=== PATIENT | female | born 1955 | race Caucasian/White ===

== ENCOUNTER 2018-09-05 18:40 | Emergency (ER) | payer MEDICAID ==
[~2018-09-05] VITALS: Ht 154.9 cm; Wt 109.1 kg
[2018-09-05 19:57] LABS: CLARITY,URINE CLEAR (Clear); COLOR,URINE YELLOW (Yellow); GLUCOSE, URINE NEGATIVE (Neg); KETONES,URINE NEGATIVE (Neg); LEUKOCYTE ESTERASE ,URINE SMALL (Neg); NITRITES, URINE NEGATIVE (Neg); OCCULT BLOOD,URINE NEGATIVE (Neg); PH,URINE 5.5 (4.8-8.0); PROTEIN,URINE NEGATIVE (Neg); UROBILINOGEN,URINE 0.2 E.U/dL (0.2-1.0)
[2018-09-05 19:58] LABS: UA COLLECTION TYPE CLN CATCH MIDSTREAM
[2018-09-05 20:06] LABS: BACTERIA,URINE NONE SEEN /HPF (Neg); MUCUS STRANDS NONE SEEN /LPF (Neg); RBC,URINE NONE SEEN /HPF (0-2); RENAL CELLS, URINE FEW /HPF; SQUAMOUS EPITHELIAL CELL,UR FEW /LPF (FEW)
[2018-09-05 20:07] LABS: BASOPHILS # (AUTO) 0.1 X10'3 (0-0.2); BASOPHILS % (AUTO) 1.2 % (0-1); EOSINOPHILS # (AUTO) 0.2 X10'3 (0-0.9); EOSINOPHILS % (AUTO) 3.1 % (0-6); HEMATOCRIT 38.3 % (35.0-45.0); HEMOGLOBIN 12.7 g/dl (12.0-16.0); LYMPHOCYTES # (AUTO) 2.1 X10'3 (1.1-4.8); LYMPHOCYTES % (AUTO) 36.3 % (21-51); MEAN CORPUSCULAR HEMOGLOBIN 31.5 PG (27.0-31.0); MEAN CORPUSCULAR HGB CONC 33.2 g/dL (33.0-36.5); MEAN CORPUSCULAR VOLUME 94.7 FL (78-98); MEAN PLATELET VOLUME 10.4 FL (7.4-10.4); MONOCYTES # (AUTO) 0.5 X10'3 (0-0.9); MONOCYTES % (AUTO) 9.1 % (2-12); NEUTROPHILS % (AUTO) 50.3 % (42-75); PLATELET COUNT 207 X10'3 (140-440); RED BLOOD COUNT 4.04 X10'6 (4.20-5.60); RED CELL DISTRIBUTION WIDTH 12.6 % (11.5-14.5); WHITE BLOOD COUNT 5.9 X10'3 (4.5-11.0)
[2018-09-05 20:20] LABS: ALANINE AMINOTRANSFERASE 32 U/L (12-78); ALBUMIN 3.6 G/DL (3.4-5.0); ALBUMIN/GLOBULIN RATIO 1.2 (1.1-1.5); ALKALINE PHOSPHATASE 109 IU/L (46-116); ANION GAP 5 (8-16); ASPARTATE AMINO TRANSFERASE 20 U/L (10-37); BILIRUBIN,TOTAL 0.2 MG/DL (0.1-1.0); BLOOD UREA NITROGEN 16 MG/DL (7-18); CALCIUM 9.3 MG/DL (8.5-10.1); CHLORIDE 109 MMOL/L (99-107); CREATININE 1.07 MG/DL (0.40-0.90); GLUCOSE 112 MG/DL (70-104); POTASSIUM 3.7 MMOL/L (3.5-5.1); SODIUM 143 MMOL/L (135-145); TOTAL CARBON DIOXIDE 29.4 MMOL/L (24-32); TOTAL PROTEIN 6.6 G/DL (6.4-8.2); eGFR 52 ML/MIN
[2018-09-05] MEDS ORDERED: CEPH-571 PO (21:54)
[2018-09-05] MEDS ORDERED: BACDS PO (22:11)
[2018-09-05 22:14] VITALS: BP 142/89
== END 2018-09-05 22:20 | disposition home or self-care (01) ==
LOC: ER 18:41
DX: N39.0 Urinary tract infection, site not specified (principal); M54.9 Dorsalgia, unspecified; Z87.442 Personal history of urinary calculi; Z91.018 Allergy to other foods; Z88.1 Allergy status to other antibiotic agents; Z88.8 Allergy status to other drugs, medicaments and biological substances; Z88.5 Allergy status to narcotic agent; Z79.899 Other long term (current) drug therapy
CPT/HCPCS: 36415; 74176; 80053; 81001; 85025; 87088; 99284

== ENCOUNTER 2019-04-30 10:08 | Emergency (ER) | payer MEDICARE, MEDICAID ==
[~2019-04-30] VITALS: Ht 154.9 cm; Wt 105.0 kg
[~2019-04-30 10:08] MED LIST: ADV50100 IH; ARIP5TAB14 PO; ASCO500C15 PO; ASPI-611 PO; ATOR40TA PO; BUDE10.2 INH; CARB100T7 PO; CARV3.122 PO; CHOL200077 PO; CLON-528 PO; FISH1CAP15 PO; ISOS30TA9 PO; LEVO500T2 PO; LISI2.5T2 PO; LYSI500T40 PO; MAGN400C PO; MELA1TAB17 PO; MIRT30TA8 PO; NITR0.4T51 SL; UBID100C16 PO; VILA10TA PO; VITA1CAP PO; [UNRECOGNIZED DRUG - CODE] PO
[2019-04-30 11:14] LABS: BASOPHILS % (AUTO) 0.9 % (0-1); EOSINOPHILS # (AUTO) 0.2 X10'3 (0-0.9); EOSINOPHILS % (AUTO) 4.6 % (0-6); HEMATOCRIT 33.1 % (35.0-45.0); HEMOGLOBIN 11.3 g/dl (12.0-16.0); LYMPHOCYTES # (AUTO) 1.1 X10'3 (1.1-4.8); LYMPHOCYTES % (AUTO) 25.5 % (21-51); MEAN CORPUSCULAR HEMOGLOBIN 32.7 PG (27.0-31.0); MEAN CORPUSCULAR HGB CONC 34.2 g/dL (33.0-36.5); MEAN CORPUSCULAR VOLUME 95.4 FL (78-98); MEAN PLATELET VOLUME 10.5 FL (7.4-10.4); MONOCYTES # (AUTO) 0.4 X10'3 (0-0.9); MONOCYTES % (AUTO) 9.8 % (2-12); NEUTROPHILS # (AUTO) 2.6 X10'3 (1.8-7.7); NEUTROPHILS % (AUTO) 59.2 % (42-75); PLATELET COUNT 166 X10'3 (140-440); RED BLOOD COUNT 3.47 X10'6 (4.20-5.60); RED CELL DISTRIBUTION WIDTH 12.2 % (11.5-14.5); WHITE BLOOD COUNT 4.4 X10'3 (4.5-11.0)
[2019-04-30 11:29] LABS: ALANINE AMINOTRANSFERASE 43 U/L (12-78); ALBUMIN 3.3 G/DL (3.4-5.0); ALKALINE PHOSPHATASE 123 IU/L (46-116); ANION GAP 11 (8-16); ASPARTATE AMINO TRANSFERASE 30 U/L (10-37); BILIRUBIN,TOTAL 0.4 MG/DL (0.1-1.0); BLOOD UREA NITROGEN 12 MG/DL (7-18); BUN/CREATININE RATIO 10.9 (6.6-38.0); CALCIUM 8.7 MG/DL (8.5-10.1); CHLORIDE 108 MMOL/L (99-107); GLUCOSE 103 MG/DL (70-104); POTASSIUM 3.7 MMOL/L (3.5-5.1); SODIUM 144 MMOL/L (135-145); TOTAL CARBON DIOXIDE 25.2 MMOL/L (24-32); TOTAL PROTEIN 6.7 G/DL (6.4-8.2); eGFR 50 ML/MIN
--- NOTE | 2019-04-30 11:38 | NUR ---
TROPONIN 3.50 REPORTED TO BRYAN AND DUSTIN WYNN.
[2019-04-30] MEDS ORDERED: nitroGLYCERIN 0.4mg SUBLingual tab SL PRN (11:55)
[2019-04-30] MEDS ORDERED: morphine 4 MG/ML inj SYRINge IV ONE (12:00)
[2019-04-30] MEDS ORDERED: ondansetron/PF 4mg/2ml inj IV ONE (12:00)
[2019-04-30] MEDS ORDERED: ATOR40TA72 PO (12:58)
[2019-04-30] MEDS ORDERED: ARIP2TAB20 PO (13:04)
[2019-04-30] MEDS ORDERED: CARB200T8 PO (13:07)
[2019-04-30 15:15] VITALS: BP 113/65
[2019-04-30] MEDS ORDERED: CIME200T95 PO (15:53)
--- NOTE | 2019-05-02 10:06 | NUR ---
Case Management DC follow up: Spoke to caregiver, pt doing fine, no c/o pain, cp, SOB at time of telephone conv. Compliant w/medications, follow up appointments.
== END 2019-04-30 16:10 | disposition home or self-care (01) ==
LOC: ER 10:08
DX: R07.89 Other chest pain (principal); I25.10 Atherosclerotic heart disease of native coronary artery without angina pectoris; J45.909 Unspecified asthma, uncomplicated; I12.9 Hypertensive chronic kidney disease with stage 1 through stage 4 chronic kidney disease, or unspecified chronic kidney disease; N18.9 Chronic kidney disease, unspecified; E78.5 Hyperlipidemia, unspecified; Z95.1 Presence of aortocoronary bypass graft; Z86.73 Personal history of transient ischemic attack (TIA), and cerebral infarction without residual deficits; Z79.899 Other long term (current) drug therapy; Z79.82 Long term (current) use of aspirin; Z91.018 Allergy to other foods; Z88.1 Allergy status to other antibiotic agents
CPT/HCPCS: 36415; 71045; 80053; 84484; 85025; 93005; 96374; 96375; 99284; J2270; J2405

== ENCOUNTER 2019-11-12 13:26 | Emergency (ER) | payer MEDICARE, MEDICAID ==
[~2019-11-12] VITALS: Ht 154.9 cm; Wt 108.6 kg
[~2019-11-12 13:26] MED LIST changes: -ADV50100 IH; +ARIP2TAB20 PO; -ARIP5TAB14 PO; -ATOR40TA PO; +ATOR40TA72 PO; -CARB100T7 PO; +CARB200T8 PO; +CIME200T95 PO; -LEVO500T2 PO; -LYSI500T40 PO; -[UNRECOGNIZED DRUG - CODE] PO
[2019-11-12 13:47] LABS: BASOPHILS % (AUTO) 0.9 % (0-1); EOSINOPHILS # (AUTO) 0.2 X10'3 (0-0.9); EOSINOPHILS % (AUTO) 4.1 % (0-6); HEMATOCRIT 41.6 % (35.0-45.0); HEMOGLOBIN 13.7 g/dl (12.0-16.0); LYMPHOCYTES # (AUTO) 1.8 X10'3 (1.1-4.8); MEAN CORPUSCULAR HEMOGLOBIN 31.6 PG (27.0-31.0); MEAN CORPUSCULAR VOLUME 95.7 FL (78-98); MEAN PLATELET VOLUME 10.8 FL (7.4-10.4); MONOCYTES # (AUTO) 0.3 X10'3 (0-0.9); MONOCYTES % (AUTO) 5.5 % (2-12); NEUTROPHILS % (AUTO) 56.5 % (42-75); PLATELET COUNT 213 X10'3 (140-440); RED BLOOD COUNT 4.34 X10'6 (4.20-5.60); RED CELL DISTRIBUTION WIDTH 11.9 % (11.5-14.5); WHITE BLOOD COUNT 5.3 X10'3 (4.5-11.0)
[2019-11-12 14:00] LABS: PARTIAL THROMBOPLASTIN TIME 25 SECONDS (22-32)
[2019-11-12 14:04] LABS: ALANINE AMINOTRANSFERASE 28 U/L (12-78); ALBUMIN 3.9 G/DL (3.4-5.0); ALBUMIN/GLOBULIN RATIO 1.1 (1.1-1.5); ALKALINE PHOSPHATASE 119 IU/L (46-116); ANION GAP 9 (8-16); ASPARTATE AMINO TRANSFERASE 17 U/L (10-37); BILIRUBIN,TOTAL 0.4 MG/DL (0.1-1.0); BLOOD UREA NITROGEN 40 MG/DL (7-18); BUN/CREATININE RATIO 28.8 (6.6-38.0); CALCIUM 9.3 MG/DL (8.5-10.1); CHLORIDE 104 MMOL/L (99-107); CREATININE 1.39 MG/DL (0.40-0.90); GLUCOSE 105 MG/DL (70-104); POTASSIUM 4.3 MMOL/L (3.5-5.1); SODIUM 139 MMOL/L (135-145); TOTAL CARBON DIOXIDE 25.8 MMOL/L (24-32); TOTAL PROTEIN 7.5 G/DL (6.4-8.2); eGFR 38 ML/MIN
[2019-11-12 14:06] LABS: TROPONIN I < 0.04 NG/ML (0.0-0.05)
--- NOTE | 2019-11-12 14:10 | NUR ---
castro stroke rn at bedside with tele neuro present. pt reports no stroke symptoms. pt at baseline. hx of neuro damage with associated confusion, speech abnormalities, and facial droop.
[2019-11-12 14:11] LABS: LARGE PLATELETS FEW; PLATELET ESTIMATE NORMAL
[2019-11-12] MEDS ORDERED: normal saline 1000ML IV soln IVB ONE (14:45)
--- NOTE | 2019-11-12 16:00 | NUR ---
MD AWARE THAT PT WOULD LIKE TO LEAVE AND REFUSES NS AND IV START. PT INFORMED THAT MD WOULD LIKE HER TO STAY FOR THE 3 HOUR TROP TO RESULT, AND THEN DC HOME.
[2019-11-12 18:25] VITALS: BP 122/64
== END 2019-11-12 18:27 | disposition home or self-care (01) ==
LOC: ER 13:27
DX: M79.602 Pain in left arm (principal); R41.0 Disorientation, unspecified; R51 Headache; R07.89 Other chest pain; I25.10 Atherosclerotic heart disease of native coronary artery without angina pectoris; I10 Essential (primary) hypertension; J44.9 Chronic obstructive pulmonary disease, unspecified; Z86.69 Personal history of other diseases of the nervous system and sense organs; Z86.73 Personal history of transient ischemic attack (TIA), and cerebral infarction without residual deficits; Z95.1 Presence of aortocoronary bypass graft; Z88.8 Allergy status to other drugs, medicaments and biological substances; Z79.82 Long term (current) use of aspirin; Z79.899 Other long term (current) drug therapy
CPT/HCPCS: 36415; 70450; 71045; 80053; 82948; 84484; 85025; 85610; 85730; 93005; 99285

== ENCOUNTER 2019-11-26 13:29 | Emergency (ER) | payer MEDICARE, MEDICAID ==
[~2019-11-26] VITALS: Ht 154.9 cm; Wt 111.0 kg
[2019-11-26] MEDS ORDERED: furosemide 10 MG/1 ML 10ml inj IV ONE (13:45)
[2019-11-26] MEDS ORDERED: NITR0.4T48 PO (14:12)
[2019-11-26] MEDS ORDERED: VILA10TA PO (14:12)
[2019-11-26] MEDS ORDERED: CARV3.122 PO (14:12)
[2019-11-26] MEDS ORDERED: CLON-369 PO (14:12)
[2019-11-26] MEDS ORDERED: LISI2.5T89 PO (14:12)
[2019-11-26] MEDS ORDERED: CARB200T9 PO (14:12)
[2019-11-26] MEDS ORDERED: FAMO40TA7 PO (14:12)
[2019-11-26] MEDS ORDERED: ISOS30TA9 PO (14:12)
[2019-11-26] MEDS ORDERED: ATOR40TA71 PO (14:12)
[2019-11-26] MEDS ORDERED: MIRT-67 PO (14:12)
[2019-11-26] MEDS ORDERED: ARIP2TAB20 PO (14:12)
[2019-11-26] MEDS ORDERED: VITA1CAP PO (14:14)
[2019-11-26] MEDS ORDERED: MULT-1085 PO (14:14)
[2019-11-26 14:16] LABS: BASOPHILS % (AUTO) 0.8 % (0-1); EOSINOPHILS # (AUTO) 0.1 X10'3 (0-0.9); EOSINOPHILS % (AUTO) 3.1 % (0-6); HEMATOCRIT 37.6 % (35.0-45.0); HEMOGLOBIN 12.9 g/dl (12.0-16.0); LYMPHOCYTES # (AUTO) 1.4 X10'3 (1.1-4.8); LYMPHOCYTES % (AUTO) 30.5 % (21-51); MEAN CORPUSCULAR HEMOGLOBIN 32.7 PG (27.0-31.0); MEAN CORPUSCULAR HGB CONC 34.3 g/dL (33.0-36.5); MEAN CORPUSCULAR VOLUME 95.4 FL (78-98); MEAN PLATELET VOLUME 10.6 FL (7.4-10.4); MONOCYTES # (AUTO) 0.3 X10'3 (0-0.9); MONOCYTES % (AUTO) 6.9 % (2-12); NEUTROPHILS # (AUTO) 2.7 X10'3 (1.8-7.7); NEUTROPHILS % (AUTO) 58.7 % (42-75); PLATELET COUNT 188 X10'3 (140-440); RED BLOOD COUNT 3.94 X10'6 (4.20-5.60); WHITE BLOOD COUNT 4.6 X10'3 (4.5-11.0)
[2019-11-26] MEDS ORDERED: OMEG1CAP13 PO (14:17)
[2019-11-26] MEDS ORDERED: ASCO500C17 PO (14:17)
[2019-11-26] MEDS ORDERED: CHOL100046 PO (14:18)
[2019-11-26 14:36] LABS: ALANINE AMINOTRANSFERASE 37 U/L (12-78); ALBUMIN 3.3 G/DL (3.4-5.0); ALKALINE PHOSPHATASE 117 IU/L (46-116); ANION GAP 7 (8-16); ASPARTATE AMINO TRANSFERASE 23 U/L (10-37); BILIRUBIN,TOTAL 0.4 MG/DL (0.1-1.0); BLOOD UREA NITROGEN 28 MG/DL (7-18); BUN/CREATININE RATIO 25.9 (6.6-38.0); CALCIUM 7.8 MG/DL (8.5-10.1); CHLORIDE 99 MMOL/L (99-107); CREATININE 1.08 MG/DL (0.40-0.90); GLUCOSE 144 MG/DL (70-104); SODIUM 133 MMOL/L (135-145); TOTAL PROTEIN 6.5 G/DL (6.4-8.2); eGFR 51 ML/MIN
[2019-11-26 14:48] LABS: POTASSIUM 3.6 MMOL/L (3.5-5.1)
[2019-11-26 15:32] VITALS: BP 130/66
== END 2019-11-26 15:25 | disposition home or self-care (01) ==
LOC: ER 13:30
DX: R06.02 Shortness of breath (principal); I50.9 Heart failure, unspecified; I25.10 Atherosclerotic heart disease of native coronary artery without angina pectoris; I11.0 Hypertensive heart disease with heart failure; J44.9 Chronic obstructive pulmonary disease, unspecified; Z86.73 Personal history of transient ischemic attack (TIA), and cerebral infarction without residual deficits; Z95.1 Presence of aortocoronary bypass graft; Z88.2 Allergy status to sulfonamides; Z88.8 Allergy status to other drugs, medicaments and biological substances; Z79.899 Other long term (current) drug therapy
CPT/HCPCS: 36415; 71045; 80053; 83880; 84484; 85025; 93005; 96374; 99285; J1940

== ENCOUNTER 2021-05-20 14:52 | Emergency (ER) | payer MEDICARE, MEDICAID ==
[~2021-05-20] VITALS: Ht 154.9 cm; Wt 113.6 kg
[~2021-05-20 14:52] MED LIST changes: -ASCO500C15 PO; +ASCO500C17 PO; -ASPI-611 PO; +ATOR40TA71 PO; -ATOR40TA72 PO; -BUDE10.2 INH; -CARB200T8 PO; +CARB200T9 PO; +CHOL100046 PO; -CHOL200077 PO; -CIME200T95 PO; +CLON-369 PO; -CLON-528 PO; +FAMO40TA7 PO; -FISH1CAP15 PO; -LISI2.5T2 PO; +LISI2.5T89 PO; -MAGN400C PO; -MELA1TAB17 PO; +MIRT-67 PO; -MIRT30TA8 PO; +MULT-1085 PO; +NITR0.4T48 PO; -NITR0.4T51 SL; +OMEG1CAP13 PO; -UBID100C16 PO
[2021-05-20 16:10] LABS: BASOPHILS % (AUTO) 0.6 % (0-1); EOSINOPHILS # (AUTO) 0.1 X10'3 (0-0.9); EOSINOPHILS % (AUTO) 1.7 % (0-6); HEMATOCRIT 41.3 % (35.0-45.0); HEMOGLOBIN 13.9 g/dl (12.0-16.0); LYMPHOCYTES # (AUTO) 1.7 X10'3 (1.1-4.8); LYMPHOCYTES % (AUTO) 28.2 % (21-51); MEAN CORPUSCULAR HEMOGLOBIN 31.8 PG (27.0-31.0); MEAN CORPUSCULAR HGB CONC 33.8 g/dL (33.0-36.5); MEAN CORPUSCULAR VOLUME 94.3 FL (78-98); MEAN PLATELET VOLUME 10.7 FL (7.4-10.4); MONOCYTES # (AUTO) 0.5 X10'3 (0-0.9); MONOCYTES % (AUTO) 7.6 % (2-12); NEUTROPHILS # (AUTO) 3.7 X10'3 (1.8-7.7); NEUTROPHILS % (AUTO) 61.9 % (42-75); PLATELET COUNT 214 X10'3 (140-440); RED BLOOD COUNT 4.38 X10'6 (4.20-5.60); RED CELL DISTRIBUTION WIDTH 12.1 % (11.5-14.5)
[2021-05-20 16:25] LABS: ALANINE AMINOTRANSFERASE 29 U/L (12-78); ALBUMIN 4.2 G/DL (3.4-5.0); ALBUMIN/GLOBULIN RATIO 1.2 (1.1-1.5); ALKALINE PHOSPHATASE 128 IU/L (46-116); ANION GAP 11 (8-16); ASPARTATE AMINO TRANSFERASE 23 U/L (10-37); BILIRUBIN,TOTAL 0.3 MG/DL (0.1-1.0); BLOOD UREA NITROGEN 23 MG/DL (7-18); BUN/CREATININE RATIO 16.9 (6.6-38.0); CALCIUM 9.6 MG/DL (8.5-10.1); CHLORIDE 102 MMOL/L (99-107); CREATININE 1.36 MG/DL (0.40-0.90); GLUCOSE 92 MG/DL (70-104); POTASSIUM 3.8 MMOL/L (3.5-5.1); SODIUM 140 MMOL/L (135-145); TOTAL CARBON DIOXIDE 27.4 MMOL/L (24-32); TOTAL PROTEIN 7.6 G/DL (6.4-8.2); eGFR 39 ML/MIN
[2021-05-20 16:34] LABS: ETHANOL < 0.010 GM/DL (0.0-0.010)
[2021-05-20] MEDS ORDERED: FURO-150 PO (16:38)
[2021-05-20] MEDS ORDERED: ALB0.5UD IH (16:38)
[2021-05-20] MEDS ORDERED: ALBU18HF2 INH (16:38)
[2021-05-20] MEDS ORDERED: MAGN500C16 PO (16:38)
[2021-05-20] MEDS ORDERED: ARIP5TAB14 PO (16:38)
[2021-05-20] MEDS ORDERED: albuterol 2.5 MG/3 ML nebule NEB PRN (17:15)
[2021-05-20 18:12] LABS: URINE AMPHETAMINE SCREEN NEGATIVE (Neg); URINE BARBITUATE SCREEN NEGATIVE (Neg); URINE BENZODIAZEPINES SCREEN NEGATIVE (Neg); URINE CANNABINOID SCREEN NEGATIVE (Neg); URINE COCAINE SCREEN NEGATIVE (Neg); URINE METHADONE SCREEN NEGATIVE (Neg); URINE OPIATE SCREEN NEGATIVE (Neg); URINE PHENCYCLIDINE SCREEN NEGATIVE (Neg)
[2021-05-20 18:15] LABS: CLARITY,URINE CLEAR (Clear); COLOR,URINE YELLOW (Yellow); GLUCOSE, URINE NEGATIVE (Neg); KETONES,URINE 15 mg/dl (Neg); LEUKOCYTE ESTERASE ,URINE NEGATIVE (Neg); NITRITES, URINE NEGATIVE (Neg); OCCULT BLOOD,URINE NEGATIVE (Neg); PROTEIN,URINE NEGATIVE (Neg); UROBILINOGEN,URINE 0.2 E.U/dL (0.2-1.0)
--- NOTE | 2021-05-20 18:19 | NUR ---
Patient calm and cooperative. Patient is able to read lips very well. Patient states she wants the Ramos Cath to stay but Dr Sylvester refused. Patient is tearful when talking about her rage and depression. [facility] does not have an available hospital bed for the patient. Patient is pending eval from [facility]. Patient does have a [address] Mcbride at [facility], but it needs to be rewritten. Patient is calm and in no distress.
[2021-05-20 18:20] LABS: UA COLLECTION TYPE FOLEY CATH
--- NOTE | 2021-05-20 18:43 | NUR ---
Ayesha, patient's caregiver and Medical POA. [phone].
[2021-05-20] MEDS: magnesium oxide 400mg tablet PO SCH (20:10)
[2021-05-20] MEDS: carVEDilol 3.125mg tablet PO SCH (20:10)
[2021-05-20] MEDS: isosorbide dinitrate 30mg tablet PO SCH (20:10)
[2021-05-20] MEDS: mirtazapine 15mg tablet PO SCH (20:11)
[2021-05-20] MEDS: famotidine 20mg tablet PO SCH (20:11)
[2021-05-20] MEDS: aripiprazole 5mg tablet PO SCH (20:11)
[2021-05-20] MEDS: carBAMazepine 100mg chewable tablet PO SCH (20:11)
[2021-05-20] MEDS: atorvastatin 20mg tablet PO SCH (20:11)
[2021-05-20] MEDS: ascorbic acid 500mg tablet PO SCH (20:54)
--- NOTE | 2021-05-21 07:00 | NUR ---
PT SITTING UP IN BED IN NAD. NO QUESTIONS AT THIS TIME. REFUSED BREAKFAST TRAY.
[2021-05-21] MEDS: furosemide 40mg tablet PO SCH (08:24)
[2021-05-21] MEDS: ascorbic acid 500mg tablet PO SCH ×2 (08:24→20:22)
[2021-05-21] MEDS: multivitamins, therapeutics tablet PO SCH (08:24)
[2021-05-21] MEDS: carVEDilol 3.125mg tablet PO SCH ×2 (08:24→20:12)
[2021-05-21] MEDS: cholecalciferol (vitamin D3) 1,000 unit (25mcg) tablet PO SCH (08:24)
[2021-05-21] MEDS: lisinopril 2.5mg tablet PO SCH (08:24)
[2021-05-21] MEDS: magnesium oxide 400mg tablet PO SCH ×2 (08:24→20:12)
[2021-05-21] MEDS: carBAMazepine 100mg chewable tablet PO SCH ×2 (08:24→20:21)
[2021-05-21] MEDS: isosorbide dinitrate 30mg tablet PO SCH ×2 (08:41→20:21)
[2021-05-21] MEDS: vitamin B comp w/Vit. C tab 1 TAB TABLET PO SCH (08:41)
--- NOTE | 2021-05-21 09:00 | NUR ---
PT ASLEEP IN BED. NO NEEDS AT THIS TIME. SPOT VITALS WDL. WILL MONITOR.
--- NOTE | 2021-05-21 11:00 | NUR ---
PT REMAINS ASLEEP IN HOSPITAL BED AWAITING DISPO. WILL CONTINUE TO MONITOR.
--- NOTE | 2021-05-21 12:16 | NUR ---
PT RESTING IN BED IN NAD. PT REFUSING LUNCH TRAY AT THIS TIME. WILL MONITOR.
--- NOTE | 2021-05-21 20:00 | NUR ---
One to one with the patient who was alert, oriented and very pleasant. She stated that she feels much better in the calm enviroment of the overflow. She denies having any psychotic symptoms. She stated that she had independently decreased her medications and she believes that is how she got into trouble with increased agitation and irritability. She currently she described her mood as good. It was explained to her that the jara catheter would have to be removed and she really wanted it in but was compliant with having it taken out. Patient has 50% hearing in her right ear but no hearing on the left.
[2021-05-21] MEDS: clonazePAM 0.5mg tablet PO PRN (20:12)
[2021-05-21] MEDS: mirtazapine 15mg tablet PO SCH (20:12)
[2021-05-21] MEDS: famotidine 20mg tablet PO SCH (20:12)
[2021-05-21] MEDS: aripiprazole 5mg tablet PO SCH (20:12)
[2021-05-21] MEDS: atorvastatin 20mg tablet PO SCH (20:12)
--- NOTE | 2021-05-21 21:11 | NUR ---
The patient appears to be sleeping.
--- NOTE | 2021-05-21 22:00 | NUR ---
Donna roberto in ED - 05/21/21 at 2221 by DIANA The patient has been accepted at [facility] and will transported in the AM by [facility] at around [phone]. Accepting Kari SHANKS.
--- NOTE | 2021-05-21 22:23 | NUR ---
The patient is resting on her bed.
--- NOTE | 2021-05-21 23:45 | NUR ---
Dr. Mcbride consulted regarding medications and orders received.
--- NOTE | 2021-05-22 01:14 | NUR ---
The patient appears to be sleeping
--- NOTE | 2021-05-22 03:03 | NUR ---
The patient appears to be sleeping
--- NOTE | 2021-05-22 04:59 | NUR ---
THe patient was wakeful during the night but appears to be asleep at this time.
[2021-05-22] MEDS: isosorbide dinitrate 30mg tablet PO SCH ×3 (08:42→20:32)
[2021-05-22] MEDS: magnesium oxide 400mg tablet PO SCH ×3 (08:42→20:28)
[2021-05-22] MEDS: cholecalciferol (vitamin D3) 1,000 unit (25mcg) tablet PO SCH (08:42)
[2021-05-22] MEDS: ascorbic acid 500mg tablet PO SCH ×2 (08:42→20:00)
[2021-05-22] MEDS: furosemide 40mg tablet PO SCH (08:42)
[2021-05-22] MEDS: lisinopril 2.5mg tablet PO SCH (08:42)
[2021-05-22] MEDS: carVEDilol 3.125mg tablet PO SCH ×3 (08:42→20:30)
[2021-05-22] MEDS: multivitamins, therapeutics tablet PO SCH (08:42)
[2021-05-22] MEDS: carBAMazepine 100mg chewable tablet PO SCH ×3 (08:43→20:36)
[2021-05-22] MEDS: vitamin B comp w/Vit. C tab 1 TAB TABLET PO SCH (11:53)
--- NOTE | 2021-05-22 16:07 | NUR ---
Pt teary eyed that she didn't get picked to go upstairs. Explained to pt that [facility] sends out packets to facilities and they pick the best fit for the facility.
[2021-05-22] MEDS: atorvastatin 20mg tablet PO SCH ×2 (20:29→21:00)
[2021-05-22] MEDS: famotidine 20mg tablet PO SCH ×2 (20:30→21:00)
[2021-05-22] MEDS: aripiprazole 5mg tablet PO SCH ×2 (20:30→21:00)
[2021-05-22] MEDS: mirtazapine 15mg tablet PO SCH ×2 (20:31→21:00)
[2021-05-22] MEDS ORDERED: haloperidol lactate 5mg/ml inj ONE (23:46)
[2021-05-22] MEDS ORDERED: diphenhydrAMINE 50 mg/ml inj ONE (23:46)
--- NOTE | 2021-05-22 23:55 | NUR ---
pt was sitting in bed ripped her 02 off jumped out of bed and ran to the unit exit. 2 staff members got in front of the door. pt acted like she was going to hit us and was yelling at top of her voice at staff scaring other 5 pt's in the unit. staff from other side of Ed came in as pt plotted herself down on the floor in front of the door. security with other staff in attendance. dr Kc brought over ny lost charge card clerk to evaluate the pt. pt yelled to have charge leave her side and walked out as she told security to get her in a wheel chair and she left. pt assisted into wheel chair by 4 people pt seemed surprised she got as far as she did but then when came to getting in the chair went limp on the staff. assisted with difficulty in the chair, wheeled back to bed with encouragement. Rn went to ask Md for orders ahe said sublingual zyprexa put in in her mouth when she yells at you. I'll put the order in when I get a chance. 2355 to 0010, notes.
[2021-05-23] MEDS ORDERED: OLANZapine 5mg rapidly disint. tablet PO ONE ×2 (00:05→21:25)
--- NOTE | 2021-05-23 00:24 | NUR ---
pt sitting in bed staring at the staff and making statements to us.
--- NOTE | 2021-05-23 00:40 | NUR ---
pt refused zyprexa stated she has never taken it before then barganed with the nurse she would take her other meds that she normally takes. was not ablbe to obtain tegretal pt said she would take her abilify. remiron, klonopin, coreg, and lipitor and pepcis and she did. had explained why the Dr ordered the zyprexa for her and then choose to take her normal medications instead.
[2021-05-23] MEDS: famotidine 20mg tablet PO SCH ×2 (00:51→20:05)
[2021-05-23] MEDS: aripiprazole 5mg tablet PO SCH ×2 (00:51→20:06)
[2021-05-23] MEDS: clonazePAM 0.5mg tablet PO PRN ×3 (00:52→20:06)
[2021-05-23] MEDS: atorvastatin 20mg tablet PO SCH ×2 (00:54→20:05)
[2021-05-23] MEDS: mirtazapine 15mg tablet PO SCH ×2 (00:55→20:06)
[2021-05-23] MEDS: carVEDilol 3.125mg tablet PO SCH ×2 (00:55→20:06)
--- NOTE | 2021-05-23 01:00 | NUR ---
pt assisted up to bedside commode to void and transfered herself back to bed sliding herself in then lifting each leg individually. pt put her 02 back on afterwards and washed herself.
--- NOTE | 2021-05-23 07:00 | NUR ---
PT SITS UP IN HER BED HER EYES OPEN SMILING. SHE DENIES PAIN AND/OR COMPLIANTS.
[2021-05-23] MEDS: magnesium oxide 400mg tablet PO SCH ×2 (08:25→20:06)
[2021-05-23] MEDS: multivitamins, therapeutics tablet PO SCH (08:25)
[2021-05-23] MEDS: cholecalciferol (vitamin D3) 1,000 unit (25mcg) tablet PO SCH (08:25)
[2021-05-23] MEDS: furosemide 40mg tablet PO SCH (08:25)
[2021-05-23] MEDS: vitamin B comp w/Vit. C tab 1 TAB TABLET PO SCH (08:28)
[2021-05-23] MEDS: isosorbide dinitrate 30mg tablet PO SCH ×2 (08:29→20:17)
[2021-05-23] MEDS: lisinopril 2.5mg tablet PO SCH (08:36)
[2021-05-23] MEDS: ascorbic acid 500mg tablet PO SCH ×2 (08:37→20:08)
[2021-05-23] MEDS: carBAMazepine 100mg chewable tablet PO SCH ×2 (08:50→20:17)
--- NOTE | 2021-05-23 09:12 | NUR ---
PT CONTINUES TO SIT UP, SMILING AND WATCHING THE NURSES AND PT'S ON THE UNIT.
--- NOTE | 2021-05-23 11:03 | NUR ---
PT ATE BREAKFAST AND IS NOW RESTING. SHE IS MEDICATION COMPLIANT AND DENIES COMPLIANTS AT THIS TIME.
--- NOTE | 2021-05-23 13:02 | NUR ---
PT IS ON THE PHONE. SHE REPORTS, "I'M STARTING TO FEEL MUCH BETTER."
--- NOTE | 2021-05-23 16:53 | NUR ---
PT CONTINUES TO SIT ON HER BED LOOKING OUT PAST HER BED AT STAFF AND OTHER PT'S. PT GIVEN A PRN FOR ANXIETY.
--- NOTE | 2021-05-23 18:05 | NUR ---
PT BP 123/68, HR 85 PT REPORTS "FEELING BETTER"
--- NOTE | 2021-05-23 20:00 | NUR ---
One to one with the patient who is very paranoid of the staff. "I thought my days were numbered" She asked if something happened to her during the night that she wanted to have a full autopsy to check for chemicals because she was suspicious of a male staff. She refused to have her Cpap. She is very watchful of the staff.
--- NOTE | 2021-05-23 21:22 | NUR ---
Discussed case with Dr. Carrillo and orders received.
--- NOTE | 2021-05-23 23:53 | NUR ---
The patient appears to be sleeping
--- NOTE | 2021-05-24 01:06 | NUR ---
The patient appears to be sleeping
--- NOTE | 2021-05-24 02:39 | NUR ---
The patient appears to be sleeping
--- NOTE | 2021-05-24 04:27 | NUR ---
The patient appears to be sleeping
--- NOTE | 2021-05-24 07:00 | NUR ---
Received patient while she was sleeping in bed. Patient on 3L O2 per NC. Breathing without discomfort at the time. Patient woke up at approximately 0715. Patient happy & smiling. Denies SI/HI or AH/VH. Patient reports that she is here because "You know sometimes you just lose your temper," she stated. 1:1 patient assessment and interview completed. Will continue to monitor.
[2021-05-24] MEDS: carVEDilol 3.125mg tablet PO SCH ×2 (08:00→20:39)
[2021-05-24] MEDS: lisinopril 2.5mg tablet PO SCH (08:00)
[2021-05-24] MEDS: isosorbide dinitrate 30mg tablet PO SCH ×2 (08:30→20:39)
[2021-05-24] MEDS: furosemide 40mg tablet PO SCH (08:30)
[2021-05-24] MEDS: vitamin B comp w/Vit. C tab 1 TAB TABLET PO SCH (08:31)
[2021-05-24] MEDS: magnesium oxide 400mg tablet PO SCH ×2 (08:31→20:39)
[2021-05-24] MEDS: carBAMazepine 100mg chewable tablet PO SCH ×2 (08:32→20:39)
[2021-05-24] MEDS: multivitamins, therapeutics tablet PO SCH (08:32)
[2021-05-24] MEDS: cholecalciferol (vitamin D3) 1,000 unit (25mcg) tablet PO SCH (08:38)
--- NOTE | 2021-05-24 09:00 | NUR ---
Patient ate breakfast and took medications without hesitation. Coreg & Zestril held as BP 92/53 and HR 57 at this time. Patient requesting the curtain pulled way back "because I like to watch everybody." Patient within line of sight at all times.
--- NOTE | 2021-05-24 09:00 | NUR ---
Note roberto in ED - 05/24/21 at 1606 by ROSALVA Patient is able to read lips and also has 50% hearing in her right ear, so speaking in her right ear works well for her. Patient extremely pleasant and alert & oriented x4 at this time. Will continue to monitor in line of sight.
[2021-05-24] MEDS: ascorbic acid 500mg tablet PO SCH ×2 (09:03→20:39)
--- NOTE | 2021-05-24 11:00 | NUR ---
Patient is able to read lips and also has 50% hearing in her right ear, so speaking in her right ear works well for her. Patient extremely pleasant and alert & oriented x4 at this time. Will continue to monitor in line of sight.
--- NOTE | 2021-05-24 13:00 | NUR ---
Patient ate 100% of her lunch. Continues to remain pleasant and oriented. Assisted to BSC to void and had a BM at this time. Aby Care given. Patient was able to get out of bed with minimal assist to BSC.
--- NOTE | 2021-05-24 15:00 | NUR ---
Patient sleeping at this time. Appears restful and remains in line of sight.
--- NOTE | 2021-05-24 16:00 | NUR ---
Spoke with Ilan from [facility]. Ilan spoke with patient and with her caregiver. Per [facility], patient is no longer a 5150. Patient's cargiver is out of town today and will return tomorrow, at which time she will burr picker the patient under a routine discharge per Ilan. Patient reports she is so happy she gets to go home tomorrow. Patient has had no outbursts today and has been pleasant and comfortable all day.
[2021-05-24] MEDS: famotidine 20mg tablet PO SCH (20:39)
[2021-05-24] MEDS: mirtazapine 15mg tablet PO SCH (20:39)
[2021-05-24] MEDS: aripiprazole 5mg tablet PO SCH (20:39)
[2021-05-24] MEDS: atorvastatin 20mg tablet PO SCH (20:39)
--- NOTE | 2021-05-24 20:43 | NUR ---
Pt awake in bed since start of shift. Watching everything happening on unit and asking questions. Pt wants to go home is aware the plan is for her to go tomorrow. Pt wanted each medication named for her at med [employer]. She knew the dosages and frequency of all of her numerous medications. She took all her medications willingly. Offered assist toileting but declined at this time. Resting quietly with eyes open at this time.
--- NOTE | 2021-05-24 23:55 | NUR ---
Pt lying quietly in bed awake, Pt has asked several times for staff to call the Doctor and have he transfered off this floor. Accepts the explanation that there are no other beds for her tonight so she will have to stay here.
--- NOTE | 2021-05-25 01:10 | NUR ---
Pt sleeping snoring softly.
--- NOTE | 2021-05-25 03:13 | NUR ---
Pt resting in bed with eyes closed at this time. Up x1 to BSC with moderate assist. Incontinent moderate amount of urine continent 400 cc clear ashley urine in BSC. Aby care done skin clear.
--- NOTE | 2021-05-25 05:14 | NUR ---
Sleeping at this time.
--- NOTE | 2021-05-25 07:45 | NUR ---
Patient peacefully sleeping with appropriate chest rise and breathing pattern. Skin color pink.
[2021-05-25] MEDS: cholecalciferol (vitamin D3) 1,000 unit (25mcg) tablet PO SCH (08:00)
[2021-05-25] MEDS: isosorbide dinitrate 30mg tablet PO SCH (08:00)
[2021-05-25] MEDS: magnesium oxide 400mg tablet PO SCH (08:00)
[2021-05-25] MEDS: multivitamins, therapeutics tablet PO SCH (08:00)
[2021-05-25] MEDS: furosemide 40mg tablet PO SCH (08:00)
[2021-05-25] MEDS: vitamin B comp w/Vit. C tab 1 TAB TABLET PO SCH (08:00)
[2021-05-25] MEDS: ascorbic acid 500mg tablet PO SCH (08:00)
[2021-05-25] MEDS: carVEDilol 3.125mg tablet PO SCH (08:00)
[2021-05-25] MEDS: lisinopril 2.5mg tablet PO SCH (08:00)
[2021-05-25] MEDS: carBAMazepine 100mg chewable tablet PO SCH (08:00)
[2021-05-25 09:41] VITALS: BP 147/74
--- NOTE | 2021-05-25 11:04 | NUR ---
Patient got up, ate 80% of her breakfast, voided and had a BM with willie care on the commode. She does require weight-bearing assistance with tx from bed to commode. She takes all her medicines while requiring information about each (pleasantly). We do socially distance with my mask down so that she may read my lips. (She is hearing impaired). She is now peacefully resting in bed, awake and alert, ready to be discharged to home with her caregiver/antoninoan.
--- NOTE | 2021-05-25 11:55 | NUR ---
Jose has left message as well as myself for caregiver Afua. She returns call and states that the patient required medical transport to get home. I reach out to Lisa with [facility] transport who schedules a 3915 pick-up from our facility. Afua is called back to update her of when to be home to get the patient. Afua: [phone] [facility] transport: [phone].
--- NOTE | 2021-05-25 13:44 | NUR ---
Patient asks for update on departure. Goal to get dressed is set for 1430. She ate 80% of her lunch.
--- NOTE | 2021-05-25 16:09 | NUR ---
1550:I call [facility] to inquire about where they are. They state that the dedicated intermodal truck driver is on the way. 1600: Group Worker arrives without wheechair and must go back to get it. Patient is updated on delay. Patient remains ready in her bed, dressed, and cooperative.
--- NOTE | 2021-05-25 16:29 | NUR ---
Patient signs DC instructions and med transport and I escort patient out of the building. She is smiling, in good spirits, and thanks us for our great care.
== END 2021-05-25 17:06 ==
LOC: ER 14:52
DX: F32.9 Major depressive disorder, single episode, unspecified (principal); Z20.822 Contact with and (suspected) exposure to COVID-19; R45.851 Suicidal ideations; R06.02 Shortness of breath; R44.1 Visual hallucinations; I25.10 Atherosclerotic heart disease of native coronary artery without angina pectoris; I10 Essential (primary) hypertension; J44.9 Chronic obstructive pulmonary disease, unspecified; Z95.1 Presence of aortocoronary bypass graft; Z87.891 Personal history of nicotine dependence; Z88.2 Allergy status to sulfonamides; Z88.1 Allergy status to other antibiotic agents; Z79.899 Other long term (current) drug therapy
CPT/HCPCS: 80053; 80305; 80320; 81003; 84443; 85025; 87635; 99285; C9803

== ENCOUNTER 2021-10-25 08:19 | Inpatient (IN) | payer MEDICARE, MEDICAID ==
[2021-10-25] VITALS (14 sets, daily range): BP systolic 105–150; BP diastolic 34–66
[~2021-10-25] VITALS: Ht 167.6 cm; Wt 113.6 kg
[~2021-10-25 08:19] MED LIST changes: +ALB0.5UD IH; +ALBU18HF2 INH; -ARIP2TAB20 PO; +ARIP5TAB14 PO; +FURO-150 PO; +MAGN500C4 PO; -OMEG1CAP13 PO; +atropine 0.1mg/ml 10ml syringe ONE; +calcium chloride 100 MG/1 ML inj IV ONE; +naloxone 0.4 mg/ml inj ONE
--- NOTE | 2021-10-25 08:21 | NUR ---
RICH (SISTER IN LAW) [phone] CASE (BROTHER) [phone].
[2021-10-25] MEDS ORDERED: meclizine 12.5mg tablet PO ONE (08:40)
[2021-10-25] MEDS ORDERED: ondansetron/PF 4mg/2ml inj IV ONE (08:40)
[2021-10-25] MEDS ORDERED: atropine 1 MG/1 ML vial IV ONE ×3 (08:55→10:35)
--- NOTE | 2021-10-25 08:59 | NUR ---
ATORPINE 1 MG GIVEN FOR HR 29.
[2021-10-25 09:08] LABS: ALANINE AMINOTRANSFERASE 29 U/L (12-78); ALBUMIN 3.2 G/DL (3.4-5.0); ALKALINE PHOSPHATASE 118 IU/L (46-116); ANION GAP 8 (8-16); ASPARTATE AMINO TRANSFERASE 23 U/L (10-37); BILIRUBIN,TOTAL 0.2 MG/DL (0.1-1.0); BLOOD UREA NITROGEN 33 MG/DL (7-18); BUN/CREATININE RATIO 22.3 (6.6-38.0); CALCIUM 8.4 MG/DL (8.5-10.1); CHLORIDE 111 MMOL/L (99-107); CREATININE 1.48 MG/DL (0.40-0.90); GLUCOSE 123 MG/DL (70-104); POTASSIUM 4.6 MMOL/L (3.5-5.1); SODIUM 142 MMOL/L (135-145); TOTAL CARBON DIOXIDE 22.8 MMOL/L (24-32); TOTAL PROTEIN 6.3 G/DL (6.4-8.2); eGFR 35 ML/MIN
[2021-10-25 09:15] LABS: BASOPHILS % (AUTO) 0.7 % (0-1); EOSINOPHILS # (AUTO) 0.4 X10'3 (0-0.9); HEMATOCRIT 36.7 % (35.0-45.0); HEMOGLOBIN 12.1 g/dl (12.0-16.0); LYMPHOCYTES # (AUTO) 1.9 X10'3 (1.1-4.8); MEAN CORPUSCULAR HEMOGLOBIN 30.7 PG (27.0-31.0); MEAN CORPUSCULAR HGB CONC 32.9 g/dL (33.0-36.5); MEAN CORPUSCULAR VOLUME 93.4 FL (78-98); MEAN PLATELET VOLUME 11.4 FL (7.4-10.4); MONOCYTES # (AUTO) 0.5 X10'3 (0-0.9); MONOCYTES % (AUTO) 6.5 % (2-12); NEUTROPHILS # (AUTO) 4.5 X10'3 (1.8-7.7); NEUTROPHILS % (AUTO) 61.8 % (42-75); PLATELET COUNT 187 X10'3 (140-440); RED BLOOD COUNT 3.93 X10'6 (4.20-5.60); RED CELL DISTRIBUTION WIDTH 11.9 % (11.5-14.5); WHITE BLOOD COUNT 7.3 X10'3 (4.5-11.0)
[2021-10-25] MEDS ORDERED: heparin 10,000 units/1 ML INJ IV ONE ×2 (09:15→09:21)
[2021-10-25] MEDS ORDERED: heparin 10,000 units/1 ML INJ IV PRN (09:15)
[2021-10-25] MEDS ORDERED: calcium chloride 100 MG/1 ML inj IV ONE (09:15)
[2021-10-25] MEDS ORDERED: heparin 25,000 UNIT/250ml bag 250 ML IV SCH (09:15)
--- NOTE | 2021-10-25 09:44 | NUR ---
med rec faxed to pharmacy
[2021-10-25 10:12] LABS: APTT 25 SECONDS (22-32)
[2021-10-25] MEDS: NORMAL SALINE IV SCH ×2 (12:20→21:06)
[2021-10-25] MEDS: ISOPROTERENOL IV SCH ×2 (12:20→21:06)
[2021-10-25] MEDS: morphine 2 MG/ML inj. syringe IV PRN (12:34)
--- NOTE | 2021-10-25 12:42 | NUR ---
Pt. to 2008 via susan from ED @ 3262 after receiving phone report from ED RN. Heart rate in the 30s. Placed on Zoll monitor to pace heart. Hooked up to bedside monitor. RN called Dr. Weinstein to notify him of pt's arrival and low heart rate while awaiting Isuprel from pharmacy. Dr. Weinsteine in to see pt. @ 1240. HR better with Isuprel (80s). RN called and obtained order for Morphine as pt. was experiencing pain from being paced and order for Ramos as pt. said she cannot void without a catheter. Temp Ramos placed. Diet order obtained. Call light in reach.
[2021-10-25] MEDS ORDERED: fentaNYL/PF 50MCG/1 ML 2ML syringe ONE (13:39)
[2021-10-25] MEDS ORDERED: iohexol 350MG/ML 100ml bottle IV ONE (13:39)
[2021-10-25] MEDS ORDERED: nitroGLYCERIN-Tridil 50MG/D5W 250 ML IV ONE (13:39)
[2021-10-25] MEDS ORDERED: midazolam 1 mg/ML 2ml injection ONE (13:39)
[2021-10-25] MEDS ORDERED: verapamil 2.5 mg/ml inj IV ONE (13:39)
[2021-10-25] MEDS ORDERED: heparin 1,000unit/ml 10ml vial 10 ML ONE (13:39)
[2021-10-25] MEDS ORDERED: LIDOcaine 1%/PF 5ML 10 MG/ML VIAL ONE (13:39)
--- NOTE | 2021-10-25 14:00 | NUR ---
To cardiac cath lab manager.
[2021-10-25 16:09] LABS: CLARITY,URINE SLIGHTLY CLOUDY (Clear); COLOR,URINE YELLOW (Yellow); GLUCOSE, URINE NEGATIVE (Neg); KETONES,URINE NEGATIVE (Neg); LEUKOCYTE ESTERASE ,URINE NEGATIVE (Neg); NITRITES, URINE POSITIVE (Neg); OCCULT BLOOD,URINE MODERATE (Neg); PH,URINE 5.5 (4.8-8.0); PROTEIN,URINE NEGATIVE (Neg); UROBILINOGEN,URINE 0.2 E.U/dL (0.2-1.0)
[2021-10-25 16:11] LABS: UA COLLECTION TYPE FOLEY CATH
--- NOTE | 2021-10-25 16:15 | NUR ---
Back from manager cardiac cath with Angioseal to right groin and right radial pressure band. RIJ CVL dressing saturated with blood. Changed. Pt. instructed to lie flat until 1829. Brother and sister in law remain at bedside. Hep. gtt off. Isuprel remains on. Defib pads placed on pt. in case she needs to be paced externally.
[2021-10-25 16:24] LABS: FINE GRANULAR CAST 0-3 /LPF (NEGATIVE); HYALINE CASTS 0-3 /LPF (NEGATIVE)
[2021-10-25 16:25] LABS: BACTERIA,URINE 1+ /HPF (Neg); SQUAMOUS EPITHELIAL CELL,UR NONE SEEN /LPF (FEW)
[2021-10-25 16:27] LABS: TRANSITIONAL EPI CELLS,URINE FEW /HPF
[2021-10-25] MEDS ORDERED: HYDROcodone/acetaminophen 10/325mg tab PO PRN (16:40)
--- NOTE | 2021-10-25 18:21 | NUR ---
Problems reprioritized. Patient report given, questions answered & plan of care reviewed with Mac RN.
[2021-10-25] MEDS: HYDROcodone/acetaminophen 5mg/325mg tablet PO PRN (23:32)
[2021-10-26] VITALS (22 sets, daily range): BP systolic 90–171; BP diastolic 0–78
[2021-10-26] MEDS ORDERED: ondansetron/PF 4mg/2ml inj ONE (01:28)
[2021-10-26 03:22] LABS: BASOPHILS % (AUTO) 0.5 % (0-1); EOSINOPHILS # (AUTO) 0.3 X10'3 (0-0.9); EOSINOPHILS % (AUTO) 3.3 % (0-6); HEMATOCRIT 34.1 % (35.0-45.0); HEMOGLOBIN 11.1 g/dl (12.0-16.0); LYMPHOCYTES # (AUTO) 1.7 X10'3 (1.1-4.8); LYMPHOCYTES % (AUTO) 20.9 % (21-51); MEAN CORPUSCULAR HEMOGLOBIN 30.6 PG (27.0-31.0); MEAN CORPUSCULAR HGB CONC 32.5 g/dL (33.0-36.5); MEAN CORPUSCULAR VOLUME 94.3 FL (78-98); MONOCYTES # (AUTO) 0.6 X10'3 (0-0.9); NEUTROPHILS # (AUTO) 5.5 X10'3 (1.8-7.7); NEUTROPHILS % (AUTO) 68.3 % (42-75); PLATELET COUNT 174 X10'3 (140-440); RED BLOOD COUNT 3.61 X10'6 (4.20-5.60); RED CELL DISTRIBUTION WIDTH 12.1 % (11.5-14.5); WHITE BLOOD COUNT 8.1 X10'3 (4.5-11.0)
[2021-10-26 03:33] LABS: ANION GAP 8 (8-16); BLOOD UREA NITROGEN 27 MG/DL (7-18); BUN/CREATININE RATIO 18.9 (6.6-38.0); CHLORIDE 112 MMOL/L (99-107); CREATININE 1.43 MG/DL (0.40-0.90); GLUCOSE 172 MG/DL (70-104); SODIUM 144 MMOL/L (135-145)
[2021-10-26 03:34] LABS: ALANINE AMINOTRANSFERASE 72 U/L (12-78); ALBUMIN 2.9 G/DL (3.4-5.0); ALKALINE PHOSPHATASE 136 IU/L (46-116); ASPARTATE AMINO TRANSFERASE 102 U/L (10-37); BILIRUBIN,TOTAL 0.4 MG/DL (0.1-1.0); CALCIUM 8.3 MG/DL (8.5-10.1); TOTAL PROTEIN 5.8 G/DL (6.4-8.2); eGFR 37 ML/MIN
[2021-10-26] MEDS: ISOPROTERENOL IV SCH ×2 (04:00→12:20)
[2021-10-26] MEDS: NORMAL SALINE IV SCH ×2 (04:00→12:20)
--- NOTE | 2021-10-26 06:22 | NUR ---
Patient in room [facility] 2009. I have received report from Celsa "D[place] HYLTON and had the opportunity to ask questions and assume patient care. Addendum: 10/26/21 at 0622 by Maureen Hernandez RN Amended: Links added.
--- NOTE | 2021-10-26 07:16 | NUR ---
Pt. states she is having hallucinations. States she sees a dog outside and the TV is moving. Pt. did receive Beaumont on noc shift. Charge aware. Will continue to monitor.
--- NOTE | 2021-10-26 07:48 | NUR ---
Pt. refusing breakfast. Appears slightly withdrawn and anxious. Home meds include antidepressants and antianxiety meds. Home meds list not addressed yet. Will ask Dr. Weinstein to address home meds.
--- NOTE | 2021-10-26 09:58 | NUR ---
Pt's brother and sister in law here. Brought pt's belongings. Belonging list updated.
--- NOTE | 2021-10-26 10:27 | NUR ---
Case management in speaking with pt's family per their request.
--- NOTE | 2021-10-26 10:37 | NUR ---
RN called Dr. Weinstein to address pt's issues. He stated [facility].
--- NOTE | 2021-10-26 10:58 | NUR ---
RN notified Dr. Weinstein of visual hallucinations.
--- NOTE | 2021-10-26 10:58 | NUR ---
RN got Dr. Weinstein to address med. rec. PT and RT eval and treat ordered.
[2021-10-26] MEDS ORDERED: COVID-19 VAC, TRIS(PFIZER)/PF 30 MCG/0.3 ML VIAL IMVAC ONE (11:55)
[2021-10-26] MEDS ORDERED: nitroGLYCERIN 0.4mg SUBLingual tab SL PRN (12:55)
[2021-10-26] MEDS ORDERED: albuterol 2.5 MG/3 ML nebule NEB PRN (12:55)
[2021-10-26] MEDS ORDERED: simethicone 125mg capsule PO PRN (13:15)
[2021-10-26] MEDS ORDERED: clonazePAM 0.5mg tablet PO PRN (13:27)
[2021-10-26] MEDS ORDERED: aripiprazole 5mg tablet PO ONE (13:27)
[2021-10-26] MEDS ORDERED: aripiprazole 5mg tablet PO SCH (13:27)
[2021-10-26] MEDS ORDERED: mirtazapine 15mg tablet PO SCH (13:42)
[2021-10-26] MEDS ORDERED: mirtazapine 15mg tablet PO ONE (13:42)
--- NOTE | 2021-10-26 14:14 | NUR ---
Pt. c/o not feeling well while on a phone call with her caregiver Ayesha. Diaphoretic and pale. EKG obtained. Medicated with Klonopin and Abililfy. RN has tried to get pt's home meds (mostly pshyh meds) ordered and verified by pharmacy/MD since this am. Pt. has not had her home meds since ORIENTAL RUG STRETCHER. Elton provided for pt. Pt. reassured.
[2021-10-26] MEDS ORDERED: ALBUTEROL INHALER 1 PUFF/90 MCG INHALation IH PRN (19:25)
[2021-10-26] MEDS: magnesium oxide 400mg tablet PO SCH (19:35)
[2021-10-26] MEDS: ascorbic acid 500mg tablet PO SCH (19:36)
[2021-10-26] MEDS: atorvastatin 20mg tablet PO SCH (19:36)
[2021-10-26] MEDS: isosorbide dinitrate 30mg tablet PO SCH (19:36)
[2021-10-26] MEDS: carBAMazepine Ext. Release 200 MG TAB.ER.12H PO SCH (19:37)
--- NOTE | 2021-10-26 20:01 | NUR ---
Patient in room CICU 2009. I have received report from JUAN,BILLING TYPIST and had the opportunity to ask questions and assume patient care. Addendum: 10/26/21 at 2000 by Brenna Emerson RN Amended: Links added.
--- NOTE | 2021-10-26 20:10 | NUR ---
Transferred pt to tele, room 3024A without incident. Notified pt's brother, Nishant of transfer.
--- NOTE | 2021-10-26 20:12 | NUR ---
I CONCUR WITH PT ASSESSMENT DONE PRIOR TO TRANSFER TO THE FLOOR. PT TOLERATED BEING TRANSFERRED WITH SLIDE BOARD FROM ICU BED TO TELE BED. HAS A TAVAREZ IN PLACE DRAING YELLOW CLURINE. NO PERIFHERAL iV AND HAS A RIGHT ij INTHE THE NECK SALINE LOCED CAPPED WITH CLEAN DRY INTACT DRESSING.PT BROUGHT OVER WITH HER BELONGINGS AND CPAP HOME MACHINE BROUGHT IN. Addendum: 10/26/21 at 2248 by Brenna Emerson RN Amended: Links added.
[2021-10-26] MEDS ORDERED: famotidine 20mg tablet PO SCH (21:00)
--- NOTE | 2021-10-26 22:00 | NUR ---
RECIEVED AN ODER FROM DR OLIVERA PT MAY USE HOME CPAP WITH HOME SETTINGS OF 3.5 L O2 AND RATE @12.
[2021-10-27 02:00] VITALS: BP 115/64
--- NOTE | 2021-10-27 04:44 | NUR ---
off cpap now and back on nasal canula 02 3 liters.
[2021-10-27 05:48] LABS: BASOPHILS % (AUTO) 0.5 % (0-1); EOSINOPHILS # (AUTO) 0.3 X10'3 (0-0.9); EOSINOPHILS % (AUTO) 5.3 % (0-6); HEMATOCRIT 31.7 % (35.0-45.0); HEMOGLOBIN 10.7 g/dl (12.0-16.0); LYMPHOCYTES # (AUTO) 1.1 X10'3 (1.1-4.8); LYMPHOCYTES % (AUTO) 19.6 % (21-51); MEAN CORPUSCULAR HEMOGLOBIN 31.6 PG (27.0-31.0); MEAN CORPUSCULAR HGB CONC 33.8 g/dL (33.0-36.5); MEAN CORPUSCULAR VOLUME 93.5 FL (78-98); MEAN PLATELET VOLUME 11.2 FL (7.4-10.4); MONOCYTES # (AUTO) 0.3 X10'3 (0-0.9); MONOCYTES % (AUTO) 5.5 % (2-12); NEUTROPHILS % (AUTO) 69.1 % (42-75); PLATELET COUNT 150 X10'3 (140-440); RED BLOOD COUNT 3.39 X10'6 (4.20-5.60); RED CELL DISTRIBUTION WIDTH 11.9 % (11.5-14.5); WHITE BLOOD COUNT 5.9 X10'3 (4.5-11.0)
[2021-10-27 05:57] LABS: ANION GAP 1 (8-16); BLOOD UREA NITROGEN 16 MG/DL (7-18); BUN/CREATININE RATIO 15.4 (6.6-38.0); CHLORIDE 113 MMOL/L (99-107); CREATININE 1.04 MG/DL (0.40-0.90); GLUCOSE 121 MG/DL (70-104); POTASSIUM 4.4 MMOL/L (3.5-5.1); SODIUM 145 MMOL/L (135-145); TOTAL CARBON DIOXIDE 30.8 MMOL/L (24-32)
[2021-10-27 05:58] LABS: ALANINE AMINOTRANSFERASE 91 U/L (12-78); ALBUMIN 2.9 G/DL (3.4-5.0); ALKALINE PHOSPHATASE 131 IU/L (46-116); ASPARTATE AMINO TRANSFERASE 58 U/L (10-37); BILIRUBIN,TOTAL 0.3 MG/DL (0.1-1.0); CALCIUM 8.4 MG/DL (8.5-10.1); TOTAL PROTEIN 5.8 G/DL (6.4-8.2); eGFR 53 ML/MIN
--- NOTE | 2021-10-27 06:16 | NUR ---
Problems reprioritized. Patient report given, questions answered & plan of care reviewed with WARNER NUNEZ. Addendum: 10/27/21 at 0617 by Brenna Emerson RN Amended: Links added.
[2021-10-27 06:25] LABS: LARGE PLATELETS FEW; PLATELET ESTIMATE NORMAL
[2021-10-27] MEDS: ondansetron/PF 4mg/2ml inj IV PRN ×3 (07:27→19:36)
[2021-10-27 07:30] VITALS: BP 124/67
[2021-10-27] MEDS: morphine 2 MG/ML inj. syringe IV PRN ×2 (07:36→11:55)
[2021-10-27] MEDS: cholecalciferol (vitamin D3) 1,000 unit (25mcg) tablet PO SCH (10:04)
[2021-10-27] MEDS: ascorbic acid 500mg tablet PO SCH ×2 (10:05→21:43)
[2021-10-27] MEDS: furosemide 20MG tablet PO SCH (10:05)
[2021-10-27] MEDS: carBAMazepine Ext. Release 200 MG TAB.ER.12H PO SCH ×2 (10:05→21:44)
[2021-10-27] MEDS: magnesium oxide 400mg tablet PO SCH ×2 (10:05→21:42)
[2021-10-27] MEDS: multivitamins, therapeutics tablet PO SCH (10:05)
[2021-10-27] MEDS: isosorbide dinitrate 30mg tablet PO SCH ×2 (10:06→21:44)
[2021-10-27] MEDS: vitamin B comp w/Vit. C tab 1 TAB TABLET PO SCH (10:06)
[2021-10-27] MEDS: lisinopril 2.5mg tablet PO SCH (10:07)
--- NOTE | 2021-10-27 10:45 | NUR ---
patient refused covid 19 vaccine. she stated that her brother is taking care of that for her outpatient and that she no longer needs to received the vaccine during her hospital stay.
[2021-10-27] MEDS ORDERED: COVID-19 VAC, TRIS(PFIZER)/PF 30 MCG/0.3 ML VIAL IMVAC ONE (11:00)
[2021-10-27 11:25] VITALS: BP 151/70
--- NOTE | 2021-10-27 13:50 | NUR ---
PAGER ID: [phone] MESSAGE: [id number] Sharath P: patient has jara cath for retention that was placed in ICU. also, she has been having nausea and vomiting all day. would you like to proceed with dc? thanks, tamara [phone]
--- NOTE | 2021-10-27 14:47 | NUR ---
Ramos cath DC'd per MD orders. Patient aware of s/s of retention. DC has been cancelled by family appealing the discharge. Dr. Yao was notified.
[2021-10-27 15:37] VITALS: BP 116/71
[2021-10-27 18:00] VITALS: BP 125/65
--- NOTE | 2021-10-27 18:19 | NUR ---
Problems reprioritized. Patient report given, questions answered & plan of care reviewed with WARNER Portillo.
--- NOTE | 2021-10-27 18:56 | NUR ---
Patient in room PCU 3024. I have received report from Marjorie HYLTON and had the opportunity to ask questions and assume patient care.
[2021-10-27] MEDS: aripiprazole 5mg tablet PO SCH (21:44)
[2021-10-27] MEDS: mirtazapine 15mg tablet PO SCH (21:45)
[2021-10-27] MEDS: atorvastatin 20mg tablet PO SCH (21:45)
[2021-10-27] MEDS: famotidine 20mg tablet PO SCH (21:45)
[2021-10-27 22:00] VITALS: BP 151/60
[2021-10-28 02:00] VITALS: BP 125/66
--- NOTE | 2021-10-28 06:30 | NUR ---
Problems reprioritized. Patient report given, questions answered & plan of care reviewed with Marjorie HYLTON.
[2021-10-28 07:20] VITALS: BP 96/52
[2021-10-28] MEDS: isosorbide dinitrate 30mg tablet PO SCH ×2 (08:15→22:25)
[2021-10-28] MEDS: multivitamins, therapeutics tablet PO SCH (08:15)
[2021-10-28] MEDS: magnesium oxide 400mg tablet PO SCH ×2 (08:16→22:28)
[2021-10-28] MEDS: carBAMazepine Ext. Release 200 MG TAB.ER.12H PO SCH ×2 (08:16→22:25)
[2021-10-28] MEDS: vitamin B comp w/Vit. C tab 1 TAB TABLET PO SCH (08:16)
[2021-10-28] MEDS: cholecalciferol (vitamin D3) 1,000 unit (25mcg) tablet PO SCH (08:16)
[2021-10-28] MEDS: ascorbic acid 500mg tablet PO SCH ×2 (08:16→22:24)
[2021-10-28 08:20] VITALS: BP 153/79
[2021-10-28] MEDS: lisinopril 2.5mg tablet PO SCH (08:27)
[2021-10-28] MEDS: furosemide 20MG tablet PO SCH (08:27)
[2021-10-28 11:04] VITALS: BP 143/81
[2021-10-28] MEDS ORDERED: COVID-19 VAC, TRIS(PFIZER)/PF 30 MCG/0.3 ML VIAL IMVAC ONE (14:05)
[2021-10-28 15:49] VITALS: BP 137/79
--- NOTE | 2021-10-28 16:30 | NUR ---
Telephone call from Hospitalist stating that medicare has declined patient and she must be discharged home with home health. Attempted to reach CM with no success. will begin DC process , awaiting covid vaccine from pharmacy.
--- NOTE | 2021-10-28 17:48 | NUR ---
Patient refused to sign the DC paperwork until I spoke with her brother Nishant. Called Nishant who said that he is in [place] and will be here tomorrow morning with the arizmendi to her house since there is nobody available at [facility] and that he arranged with our director case to have her dropped off at her house between 10-11 on 10/29/21. Explained to the patient that since the [facility] appeal was declined, they would be responsible for the bill thereafter. Nishant said that he refuses to be responsible for this bill since he already coordinated with someone at this hospital for her transfer to be tomorrow. No notes found on todays date for DCP. canal tender notified. Will notify Hospitalist.
--- NOTE | 2021-10-28 17:59 | NUR ---
PAGER ID: [phone] MESSAGE: [id number] Ángel Early: GONZALES...Nishant (brother) has transfer home planned for tomorrow 10-11. She has no arizmendi to her house and no way to get there.
[2021-10-28 18:00] VITALS: BP 158/77
--- NOTE | 2021-10-28 18:22 | NUR ---
Problems reprioritized. Patient report given, questions answered & plan of care reviewed with WARNER Dove.
[2021-10-28] MEDS: famotidine 20mg tablet PO SCH (22:24)
[2021-10-28] MEDS: guaiFENesin ER 600mg tablet PO SCH (22:24)
[2021-10-28] MEDS: aripiprazole 5mg tablet PO SCH (22:25)
[2021-10-28] MEDS: mirtazapine 15mg tablet PO SCH (22:25)
[2021-10-28] MEDS: atorvastatin 20mg tablet PO SCH (22:25)
[2021-10-28] MEDS: HYDROcodone/acetaminophen 5mg/325mg tablet PO PRN (23:14)
[2021-10-29 06:38] LABS: BASOPHILS % (AUTO) 0.5 % (0-1); EOSINOPHILS # (AUTO) 0.2 X10'3 (0-0.9); EOSINOPHILS % (AUTO) 4.6 % (0-6); HEMATOCRIT 33.6 % (35.0-45.0); HEMOGLOBIN 11.3 g/dl (12.0-16.0); LYMPHOCYTES # (AUTO) 1.8 X10'3 (1.1-4.8); LYMPHOCYTES % (AUTO) 34.5 % (21-51); MEAN CORPUSCULAR HEMOGLOBIN 31.2 PG (27.0-31.0); MEAN CORPUSCULAR HGB CONC 33.7 g/dL (33.0-36.5); MEAN CORPUSCULAR VOLUME 92.4 FL (78-98); MEAN PLATELET VOLUME 11.2 FL (7.4-10.4); MONOCYTES # (AUTO) 0.4 X10'3 (0-0.9); NEUTROPHILS # (AUTO) 2.7 X10'3 (1.8-7.7); NEUTROPHILS % (AUTO) 53.4 % (42-75); PLATELET COUNT 173 X10'3 (140-440); RED BLOOD COUNT 3.64 X10'6 (4.20-5.60); WHITE BLOOD COUNT 5.1 X10'3 (4.5-11.0)
[2021-10-29 06:43] LABS: ALANINE AMINOTRANSFERASE 68 U/L (12-78); ALBUMIN 3.1 G/DL (3.4-5.0); ALBUMIN/GLOBULIN RATIO 0.9 (1.1-1.5); ALKALINE PHOSPHATASE 137 IU/L (46-116); ANION GAP 6 (8-16); ASPARTATE AMINO TRANSFERASE 29 U/L (10-37); BILIRUBIN,TOTAL 0.4 MG/DL (0.1-1.0); BLOOD UREA NITROGEN 15 MG/DL (7-18); BUN/CREATININE RATIO 14.4 (6.6-38.0); CALCIUM 8.7 MG/DL (8.5-10.1); CHLORIDE 107 MMOL/L (99-107); CREATININE 1.04 MG/DL (0.40-0.90); GLUCOSE 103 MG/DL (70-104); POTASSIUM 3.5 MMOL/L (3.5-5.1); SODIUM 145 MMOL/L (135-145); TOTAL CARBON DIOXIDE 31.7 MMOL/L (24-32); TOTAL PROTEIN 6.4 G/DL (6.4-8.2); eGFR 53 ML/MIN
[2021-10-29 07:30] VITALS: BP 159/84
[2021-10-29] MEDS: isosorbide dinitrate 30mg tablet PO SCH (07:57)
[2021-10-29] MEDS: vitamin B comp w/Vit. C tab 1 TAB TABLET PO SCH (07:57)
[2021-10-29] MEDS: magnesium oxide 400mg tablet PO SCH (07:57)
[2021-10-29] MEDS: cholecalciferol (vitamin D3) 1,000 unit (25mcg) tablet PO SCH (07:58)
[2021-10-29] MEDS: lisinopril 2.5mg tablet PO SCH (07:58)
[2021-10-29] MEDS: ascorbic acid 500mg tablet PO SCH (07:58)
[2021-10-29] MEDS: carBAMazepine Ext. Release 200 MG TAB.ER.12H PO SCH (07:58)
[2021-10-29] MEDS: multivitamins, therapeutics tablet PO SCH (07:58)
[2021-10-29] MEDS: furosemide 20MG tablet PO SCH (07:58)
[2021-10-29] MEDS: guaiFENesin ER 600mg tablet PO SCH (07:58)
[2021-10-29] MEDS ORDERED: fluticasone nasal spray 16GM bottle NS SCH (08:00)
[2021-10-29 09:44] LABS: GIANT PLATELET FEW; LARGE PLATELETS FEW; PLATELET ESTIMATE NORMAL
--- NOTE | 2021-10-29 10:14 | NUR ---
IJ dc'd per md orders
[2021-10-29 11:36] VITALS: BP 145/85
--- NOTE | 2021-10-29 12:08 | NUR ---
Patient stable and appropriate for discharge back home with home health arrangements. IJ removed, school bus monitor removed. All belongings taken from room. No new rx , next due doses for all continued medications written in the dc packet. All discharge instructions , education , and follow up appt phone numbers given and reviewed with patient and brother Don (POA), all questions answered. CM has given information needed to obtain a new caregiver.
--- NOTE | 2021-11-03 16:27 | NUR ---
Case Management DC follow up: Left V/M with name, telephone number, and reason for call.
== END 2021-10-29 12:10 | disposition home health service (06) | DRG 281 ==
LOC: ER 08:20 → ED HOLD 11:18 → CICU 2S 11:54 → PCU 3S 10-26 20:41
PROVIDERS: ADMIT Internal Medicine Critical Care Medicine; ATTEND Internal Medicine
PROC: 4A023N7 Measurement of Cardiac Sampling and Pressure, Left Heart, Percutaneous Approach (ICD-10-PCS; principal; 2021-10-25)
PROC: B2111ZZ Fluoroscopy of Multiple Coronary Arteries using Low Osmolar Contrast (ICD-10-PCS; 2021-10-25)
PROC: B2131ZZ Fluoroscopy of Multiple Coronary Artery Bypass Grafts using Low Osmolar Contrast (ICD-10-PCS; 2021-10-25)
PROC: B41F1ZZ Fluoroscopy of Right Lower Extremity Arteries using Low Osmolar Contrast (ICD-10-PCS; 2021-10-25)
PROC: B2151ZZ Fluoroscopy of Left Heart using Low Osmolar Contrast (ICD-10-PCS; 2021-10-25)
PROC: 02HV33Z Insertion of Infusion Device into Superior Vena Cava, Percutaneous Approach (ICD-10-PCS; 2021-10-25)
PROC: 5A09357 Assistance with Respiratory Ventilation, Less than 24 Consecutive Hours, Continuous Positive Airway Pressure (ICD-10-PCS; 2021-10-27)
DX: I25.110 Atherosclerotic heart disease of native coronary artery with unstable angina pectoris (principal); I21.3 ST elevation (STEMI) myocardial infarction of unspecified site; N17.9 Acute kidney failure, unspecified; R00.1 Bradycardia, unspecified; I10 Essential (primary) hypertension; J44.9 Chronic obstructive pulmonary disease, unspecified; F32.A Depression, unspecified; R44.1 Visual hallucinations; G40.909 Epilepsy, unspecified, not intractable, without status epilepticus; H81.13 Benign paroxysmal vertigo, bilateral; Z86.73 Personal history of transient ischemic attack (TIA), and cerebral infarction without residual deficits; Z95.1 Presence of aortocoronary bypass graft; Z28.21 Immunization not carried out because of patient refusal; Z88.8 Allergy status to other drugs, medicaments and biological substances; Z79.899 Other long term (current) drug therapy
CPT/HCPCS: 36415; 71045; 80053; 81001; 83880; 84484; 85008; 85025; 85610; 85730; 87077; 87081; 87088; 87186; 93005; 93459; 94660; 94760; 96374; 96375; 96376; 97110; 97116; 97161; 97530; 99152; 99153; 99285; A4333; A4615; A4620; A6258; A6449; C1751; C1760; C1769; C1894; G0378; J0461; J1644; J2250; J2270; J2310; J2405; J3010; J3490; J7030; J7050; J8597; Q9967

== ENCOUNTER 2022-08-24 12:43 | Inpatient (IN) | payer MEDICARE, MEDICAID ==
[~2022-08-24] VITALS: Ht 154.9 cm; Wt 114.1 kg
[~2022-08-24 12:43] MED LIST changes: -CARV3.122 PO; -atropine 0.1mg/ml 10ml syringe ONE; -calcium chloride 100 MG/1 ML inj IV ONE; -naloxone 0.4 mg/ml inj ONE
[2022-08-24 13:14] LABS: BASOPHILS % (AUTO) 0.7 % (0-1); EOSINOPHILS # (AUTO) 0.1 X10'3 (0-0.9); EOSINOPHILS % (AUTO) 1.2 % (0-6); HEMATOCRIT 39.7 % (35.0-45.0); HEMOGLOBIN 13.3 g/dl (12.0-16.0); LYMPHOCYTES # (AUTO) 1.5 X10'3 (1.1-4.8); LYMPHOCYTES % (AUTO) 31.2 % (21-51); MEAN CORPUSCULAR HEMOGLOBIN 31.7 PG (27.0-31.0); MEAN CORPUSCULAR HGB CONC 33.5 g/dL (33.0-36.5); MEAN CORPUSCULAR VOLUME 94.8 FL (78-98); MEAN PLATELET VOLUME 10.7 FL (7.4-10.4); MONOCYTES # (AUTO) 0.4 X10'3 (0-0.9); MONOCYTES % (AUTO) 8.3 % (2-12); NEUTROPHILS # (AUTO) 2.9 X10'3 (1.8-7.7); NEUTROPHILS % (AUTO) 58.6 % (42-75); PLATELET COUNT 224 X10'3 (140-440); RED BLOOD COUNT 4.19 X10'6 (4.20-5.60); RED CELL DISTRIBUTION WIDTH 12.3 % (11.5-14.5)
[2022-08-24 13:19] LABS: ALANINE AMINOTRANSFERASE 31 U/L (12-78); ALBUMIN 3.6 G/DL (3.4-5.0); ALKALINE PHOSPHATASE 150 IU/L (46-116); ANION GAP 10 (8-16); ASPARTATE AMINO TRANSFERASE 16 U/L (10-37); BILIRUBIN,TOTAL 0.3 MG/DL (0.1-1.0); BLOOD UREA NITROGEN 42 MG/DL (7-18); BUN/CREATININE RATIO 32.3 (10.0-20.0); CALCIUM 8.7 MG/DL (8.5-10.1); CHLORIDE 104 MMOL/L (99-107); GLUCOSE 119 MG/DL (70-104); POTASSIUM 4.3 MMOL/L (3.5-5.1); SODIUM 140 MMOL/L (135-145); TOTAL CARBON DIOXIDE 25.7 MMOL/L (24-32); TOTAL PROTEIN 7.3 G/DL (6.4-8.2); eGFR 41 ML/MIN
[2022-08-24] MEDS ORDERED: normal saline 500ml IV soln 500 ML IV ONE (13:35)
[2022-08-24] MEDS ORDERED: magnesium Cl slow-release 64mg tablet PO PRN (15:05)
[2022-08-24] MEDS ORDERED: magnesium hydroxide 30ml (MOM) UD suspension PO PRN (15:05)
[2022-08-24] MEDS ORDERED: ondansetron/PF 4mg/2ml inj IV PRN (15:05)
[2022-08-24] MEDS ORDERED: mag hydrox/Alum hydrox/simeth 30ml oral suspension PO PRN (15:05)
[2022-08-24] MEDS ORDERED: magnesium 2GM in 50ml NS 50 ML IV PRN (15:05)
[2022-08-24] MEDS ORDERED: potassium Cl 40MEQ/1/2NS 520ml 520 ML IV PRN (15:05)
[2022-08-24] MEDS ORDERED: potassium Cl 20 mEq SR tablet PO PRN ×2 (15:05)
[2022-08-24] MEDS ORDERED: acetaminophen 325mg tablet PO PRN (15:05)
[2022-08-24] MEDS ORDERED: magnesium 4gm in 100ml NS 100 ML IV PRN (15:05)
[2022-08-24] MEDS ORDERED: ATOR-2 PO (15:37)
[2022-08-24] MEDS ORDERED: LISI10TA27 PO (15:46)
[2022-08-24] MEDS ORDERED: VILA10TA2 PO (15:46)
[2022-08-24] MEDS ORDERED: MULT-1161 PO (15:46)
--- NOTE | 2022-08-24 17:11 | NUR ---
Patient in room ED 17. I have received report from ER nurse Breezy HYLTON and had the opportunity to ask questions and assume patient care.
[2022-08-24] MEDS ORDERED: clonazePAM 0.5mg tablet PO PRN (17:30)
[2022-08-24] MEDS ORDERED: albuterol 2.5 MG/3 ML nebule NEB PRN (17:40)
--- NOTE | 2022-08-24 17:45 | NUR ---
Patient arrived to unit via wheel chair. 20G IV in HERMELINDO running NS @ 100 mL.
--- NOTE | 2022-08-24 18:18 | NUR ---
Problems reprioritized. Patient report given, questions answered & plan of care reviewed with Perico SHAH.
[2022-08-24] MEDS: carBAMazepine Ext. Release 200 MG TAB.ER.12H PO SCH (19:32)
[2022-08-24] MEDS: docusate sod 100mg capsule PO SCH (19:32)
[2022-08-24] MEDS: mirtazapine 15mg tablet PO SCH (19:33)
[2022-08-24] MEDS: ascorbic acid 500mg tablet PO SCH (19:33)
[2022-08-24] MEDS: aripiprazole 5mg tablet PO SCH (19:33)
[2022-08-24] MEDS ORDERED: non-formulary drug (Magnesium Oxide (Magnesium) 1 CAP) PO SCH (20:00)
[2022-08-24] MEDS: K and/or MAG REPLACEMENT MC SCH (20:00)
[2022-08-24] MEDS ORDERED: famotidine 20mg tablet PO SCH (21:00)
[2022-08-25 02:00] VITALS: BP 114/66
--- NOTE | 2022-08-25 06:30 | NUR ---
Patient in room PCU 3028. I have received report from Perico SHAH and had the opportunity to ask questions and assume patient care. Patient currently doesn't have a IV will contact PICC team due to being a difficult stick. IV removed by Perico SHAH @ shift change. Patient complains of minor discomfort to IV site.
[2022-08-25 07:00] VITALS: BP 117/49
--- NOTE | 2022-08-25 07:10 | NUR ---
Paged PICC nurse for new IV
[2022-08-25 07:13] LABS: BASOPHILS % (AUTO) 0.7 % (0-1); EOSINOPHILS # (AUTO) 0.1 X10'3 (0-0.9); EOSINOPHILS % (AUTO) 2.3 % (0-6); HEMATOCRIT 38.9 % (35.0-45.0); HEMOGLOBIN 13.1 g/dl (12.0-16.0); LYMPHOCYTES # (AUTO) 1.5 X10'3 (1.1-4.8); LYMPHOCYTES % (AUTO) 33.4 % (21-51); MEAN CORPUSCULAR HEMOGLOBIN 31.9 PG (27.0-31.0); MEAN CORPUSCULAR HGB CONC 33.8 g/dL (33.0-36.5); MEAN CORPUSCULAR VOLUME 94.5 FL (78-98); MONOCYTES # (AUTO) 0.4 X10'3 (0-0.9); MONOCYTES % (AUTO) 8.9 % (2-12); NEUTROPHILS # (AUTO) 2.4 X10'3 (1.8-7.7); NEUTROPHILS % (AUTO) 54.7 % (42-75); PLATELET COUNT 196 X10'3 (140-440); RED BLOOD COUNT 4.12 X10'6 (4.20-5.60); RED CELL DISTRIBUTION WIDTH 12.1 % (11.5-14.5); WHITE BLOOD COUNT 4.3 X10'3 (4.5-11.0)
[2022-08-25 07:37] LABS: ALBUMIN 3.4 G/DL (3.4-5.0); ANION GAP 11 (8-16); BLOOD UREA NITROGEN 40 MG/DL (7-18); BUN/CREATININE RATIO 32.3 (10.0-20.0); CALCIUM 9.3 MG/DL (8.5-10.1); CHLORIDE 106 MMOL/L (99-107); CREATININE 1.24 MG/DL (0.40-0.90); GLUCOSE 108 MG/DL (70-104); MAGNESIUM 2.6 MG/DL (1.5-2.4); POTASSIUM 4.1 MMOL/L (3.5-5.1); SODIUM 142 MMOL/L (135-145); TOTAL CARBON DIOXIDE 25.1 MMOL/L (24-32); eGFR 43 ML/MIN
[2022-08-25] MEDS: K and/or MAG REPLACEMENT MC SCH ×2 (08:00→20:00)
[2022-08-25] MEDS: atorvastatin 20mg tablet PO SCH (09:05)
[2022-08-25] MEDS: docusate sod 100mg capsule PO SCH ×2 (09:06→20:00)
[2022-08-25] MEDS: furosemide 20MG tablet PO SCH (09:06)
[2022-08-25] MEDS: vitamin B comp w/Vit. C tab 1 TAB TABLET PO SCH (09:06)
[2022-08-25] MEDS: ascorbic acid 500mg tablet PO SCH ×2 (09:07→20:52)
[2022-08-25] MEDS: lisinopril 10 MG tablet PO SCH (09:14)
[2022-08-25] MEDS: normal saline 1000ml 1,000 ML IV SCH ×2 (11:10→18:00)
[2022-08-25 11:45] VITALS: BP 133/51
[2022-08-25] MEDS: carBAMazepine Ext. Release 200 MG TAB.ER.12H PO SCH ×2 (12:36→20:52)
[2022-08-25] MEDS ORDERED: pneumococcal 23-VAL P-sac vacc 25 mcg/0.5ml vial IMVAC ONE (13:00)
--- NOTE | 2022-08-25 13:24 | NUR ---
Spoke with Cheryl Cardiology AUTOMATIC HEMMER about patient's NPO diet. Cheryl gave order for HH diet.
[2022-08-25 14:52] LABS: HEMOGLOBIN A1C 5.8 % (4.5-6.2)
[2022-08-25 14:58] LABS: CHOL/HDL RATIO 3.1 (0.00-4.99); CHOLESTEROL 162 MG/DL (0-200); HDL CHOLESTEROL 52 MG/DL (35-60); LDL CHOLESTEROL 75 MG/DL (50-100); TRIGLYCERIDES 155 MG/DL (20-135)
[2022-08-25 16:00] VITALS: BP 99/44
--- NOTE | 2022-08-25 16:39 | NUR ---
CHILD CARE NURSE documentation: I have reviewed and agree with all interventions, assessments performed and documented by PARISA JULES LVN.
[2022-08-25 18:00] VITALS: BP 103/38
--- NOTE | 2022-08-25 18:45 | NUR ---
Problems reprioritized. Patient report given, questions answered & plan of care reviewed with Leah HYLTON.
[2022-08-25] MEDS: aripiprazole 5mg tablet PO SCH (20:51)
[2022-08-25] MEDS: mirtazapine 15mg tablet PO SCH (20:51)
[2022-08-25] MEDS: famotidine 20mg tablet PO SCH (20:51)
[2022-08-26 01:27] VITALS: BP 103/45
--- NOTE | 2022-08-26 06:31 | NUR ---
Problems reprioritized. Patient report given, questions answered & plan of care reviewed with WARNER RESENDEZ.
[2022-08-26 06:52] LABS: BASOPHILS % (AUTO) 0.4 % (0-1); EOSINOPHILS # (AUTO) 0.2 X10'3 (0-0.9); EOSINOPHILS % (AUTO) 2.5 % (0-6); HEMATOCRIT 39.1 % (35.0-45.0); HEMOGLOBIN 12.8 g/dl (12.0-16.0); LYMPHOCYTES # (AUTO) 1.8 X10'3 (1.1-4.8); LYMPHOCYTES % (AUTO) 27.6 % (21-51); MEAN CORPUSCULAR HEMOGLOBIN 31.1 PG (27.0-31.0); MEAN CORPUSCULAR HGB CONC 32.8 g/dL (33.0-36.5); MEAN CORPUSCULAR VOLUME 94.7 FL (78-98); MEAN PLATELET VOLUME 10.7 FL (7.4-10.4); MONOCYTES # (AUTO) 0.5 X10'3 (0-0.9); MONOCYTES % (AUTO) 7.5 % (2-12); PLATELET COUNT 197 X10'3 (140-440); RED BLOOD COUNT 4.13 X10'6 (4.20-5.60); RED CELL DISTRIBUTION WIDTH 12.2 % (11.5-14.5); WHITE BLOOD COUNT 6.5 X10'3 (4.5-11.0)
[2022-08-26 06:56] LABS: ALBUMIN 3.2 G/DL (3.4-5.0); ANION GAP 8 (8-16); BLOOD UREA NITROGEN 39 MG/DL (7-18); BUN/CREATININE RATIO 28.3 (10.0-20.0); CALCIUM 8.6 MG/DL (8.5-10.1); CHLORIDE 111 MMOL/L (99-107); CREATININE 1.38 MG/DL (0.40-0.90); GLUCOSE 107 MG/DL (70-104); MAGNESIUM 2.2 MG/DL (1.5-2.4); SODIUM 146 MMOL/L (135-145); TOTAL CARBON DIOXIDE 26.7 MMOL/L (24-32); eGFR 38 ML/MIN
[2022-08-26 07:00] VITALS: BP 130/79
[2022-08-26 07:10] LABS: LARGE PLATELETS FEW; PLATELET ESTIMATE NORMAL
[2022-08-26] MEDS: carBAMazepine Ext. Release 200 MG TAB.ER.12H PO SCH ×2 (07:45→20:12)
[2022-08-26] MEDS: atorvastatin 20mg tablet PO SCH (07:45)
[2022-08-26] MEDS: lisinopril 10 MG tablet PO SCH (07:46)
[2022-08-26] MEDS: vitamin B comp w/Vit. C tab 1 TAB TABLET PO SCH (07:47)
[2022-08-26] MEDS: furosemide 20MG tablet PO SCH (07:47)
[2022-08-26] MEDS: ascorbic acid 500mg tablet PO SCH ×2 (07:49→20:18)
[2022-08-26] MEDS: K and/or MAG REPLACEMENT MC SCH ×2 (08:00→20:00)
[2022-08-26] MEDS: docusate sod 100mg capsule PO SCH ×2 (08:00→20:00)
--- NOTE | 2022-08-26 10:07 | NUR ---
Pt stated she was told her PPM operation could be today so she didn't want to eat her breakfast. I heard nothing that the procedure is scheduled for today, but am following up on finding out when the procedure will be scheduled. Pt has an order for a HH diet, which we will give if there is no procedure today. So far I have contacted laborer powerhouse and reached out to Cheryl Burton for planning today.
--- NOTE | 2022-08-26 10:07 | NUR ---
Patient in room PCU 3028. I have received report from Leah HYLTON and had the opportunity to ask questions and assume patient care.
[2022-08-26 11:00] VITALS: BP 124/52
[2022-08-26] MEDS: normal saline 1000ml 1,000 ML IV SCH (11:50)
[2022-08-26 15:00] VITALS: BP 116/46
[2022-08-26 17:14] LABS: HBSAG SCREEN Negative (Negative); HEP B CORE AB, TOT Negative (Negative)
[2022-08-26 18:00] VITALS: BP 135/69
[2022-08-26] MEDS: famotidine 20mg tablet PO SCH (20:12)
[2022-08-26] MEDS: aripiprazole 5mg tablet PO SCH (20:12)
[2022-08-26] MEDS: mirtazapine 15mg tablet PO SCH (20:13)
--- NOTE | 2022-08-26 23:43 | NUR ---
PAGER ID: [phone] MESSAGE: PT RM [id number] BRIT CENTENO PT REQUESTING 9 MG MELATONIN FOR SLEEP HAS PACEMAKER PLACEMENT TOMORROW AM AND TAKES IT AT HOME LANA [phone]
[2022-08-27] VITALS (13 sets, daily range): BP systolic 100–138; BP diastolic 42–62
--- NOTE | 2022-08-27 | NUR ---
PT REQUESTED MELATONIN DR NOVOA ORDERED 9MG MELATONIN. PT NORMALLY TAKES 10 MG AT HOME.
[2022-08-27] MEDS: Melatonin 3mg tablet PO PRN (00:36)
[2022-08-27] MEDS: normal saline 1000ml 1,000 ML IV SCH ×3 (01:10→23:16)
[2022-08-27 06:20] LABS: BASOPHILS % (AUTO) 0.5 % (0-1); EOSINOPHILS # (AUTO) 0.2 X10'3 (0-0.9); EOSINOPHILS % (AUTO) 3.2 % (0-6); HEMATOCRIT 36.2 % (35.0-45.0); LYMPHOCYTES # (AUTO) 1.5 X10'3 (1.1-4.8); MEAN CORPUSCULAR HEMOGLOBIN 31.5 PG (27.0-31.0); MEAN CORPUSCULAR HGB CONC 33.2 g/dL (33.0-36.5); MEAN PLATELET VOLUME 10.8 FL (7.4-10.4); MONOCYTES # (AUTO) 0.4 X10'3 (0-0.9); MONOCYTES % (AUTO) 7.2 % (2-12); NEUTROPHILS # (AUTO) 3.4 X10'3 (1.8-7.7); NEUTROPHILS % (AUTO) 62.1 % (42-75); PLATELET COUNT 188 X10'3 (140-440); RED BLOOD COUNT 3.81 X10'6 (4.20-5.60); WHITE BLOOD COUNT 5.5 X10'3 (4.5-11.0)
[2022-08-27 06:30] LABS: ALBUMIN 3.1 G/DL (3.4-5.0); ANION GAP 9 (8-16); BLOOD UREA NITROGEN 25 MG/DL (7-18); BUN/CREATININE RATIO 23.1 (10.0-20.0); CALCIUM 8.7 MG/DL (8.5-10.1); CHLORIDE 111 MMOL/L (99-107); CREATININE 1.08 MG/DL (0.40-0.90); GLUCOSE 97 MG/DL (70-104); MAGNESIUM 1.9 MG/DL (1.5-2.4); POTASSIUM 3.8 MMOL/L (3.5-5.1); SODIUM 146 MMOL/L (135-145); TOTAL CARBON DIOXIDE 26.5 MMOL/L (24-32); eGFR 50 ML/MIN
--- NOTE | 2022-08-27 06:45 | NUR ---
Problems reprioritized. Patient report given, questions answered & plan of care reviewed with WARNER BLANCA.
--- NOTE | 2022-08-27 06:56 | NUR ---
Patient in room PCU 3028. I have received report from Leah Caballero and had the opportunity to ask questions and assume patient care.
[2022-08-27] MEDS: K and/or MAG REPLACEMENT MC SCH ×2 (07:27→20:00)
[2022-08-27] MEDS: atorvastatin 20mg tablet PO SCH (07:48)
[2022-08-27] MEDS: furosemide 20MG tablet PO SCH (07:49)
[2022-08-27] MEDS: ascorbic acid 500mg tablet PO SCH ×2 (07:50→20:00)
[2022-08-27] MEDS: lisinopril 10 MG tablet PO SCH (07:50)
[2022-08-27] MEDS: vitamin B comp w/Vit. C tab 1 TAB TABLET PO SCH (07:51)
[2022-08-27] MEDS: docusate sod 100mg capsule PO SCH ×2 (07:52→20:00)
[2022-08-27] MEDS: carBAMazepine Ext. Release 200 MG TAB.ER.12H PO SCH ×2 (07:52→20:00)
[2022-08-27] MEDS ORDERED: vancomycin/NS 1 GM ADD-VANTAGE 250 ML IV ONE ×2 (10:30)
[2022-08-27] MEDS ORDERED: ceFAZolin 2gm in dextrose, iso 100 ML IV ONE (10:50)
[2022-08-27] MEDS ORDERED: LIDOCAINE 2%/EPI 1:100,000 inj. Multi-dose 20 ML VIAL ONE (16:48)
[2022-08-27] MEDS ORDERED: fentaNYL/PF 50MCG/1 ML 2ML syringe ONE (16:48)
[2022-08-27] MEDS ORDERED: vancomycin 1,000mg inj ONE (16:48)
[2022-08-27] MEDS ORDERED: midazolam 1 mg/ML 2ml injection ONE ×6 (16:48→18:59)
[2022-08-27] MEDS ORDERED: proCHLORperazine 10 MG/2 ml inj ONE (17:44)
--- NOTE | 2022-08-27 18:23 | NUR ---
Problems reprioritized. Patient report given, questions answered & plan of care reviewed with Shabana DISPLAY MANAGER.
--- NOTE | 2022-08-27 20:15 | NUR ---
Pt returned from dental laboratory worker at approx 2010, report given to LN at bedside. Pt asleep, vitals taken, stable. physician orders noted, faxed to pharmacy and xray ordered for now. Sling to be worn at all times x 1 week., NS @ 200/hr.
[2022-08-27] MEDS ORDERED: normal saline 1000ml 400 ML IV ONE (20:30)
[2022-08-27] MEDS: famotidine 20mg tablet PO SCH (21:00)
[2022-08-27] MEDS: mirtazapine 15mg tablet PO SCH (21:00)
[2022-08-27] MEDS: aripiprazole 5mg tablet PO SCH (21:00)
[2022-08-27] MEDS: CLINDAMYCIN 600mg IN NS 50ML 50 ML IV SCH (21:22)
[2022-08-28] VITALS (7 sets, daily range): BP systolic 111–131; BP diastolic 44–59
--- NOTE | 2022-08-28 02:17 | NUR ---
Agree with Shabana SHAH's physical assessment except where I documented my findings.
[2022-08-28] MEDS: CLINDAMYCIN 600mg IN NS 50ML 50 ML IV SCH (04:38)
[2022-08-28] MEDS: normal saline 1000ml 1,000 ML IV SCH ×3 (04:58→14:03)
--- NOTE | 2022-08-28 06:15 | NUR ---
Patient in room PCU 3028. I have received report from ARIAN Lamar RN and had the opportunity to ask questions and assume patient care.
[2022-08-28 06:16] LABS: ALBUMIN 3.1 G/DL (3.4-5.0); ANION GAP 10 (8-16); BLOOD UREA NITROGEN 19 MG/DL (7-18); BUN/CREATININE RATIO 17.9 (10.0-20.0); CALCIUM 8.2 MG/DL (8.5-10.1); CHLORIDE 112 MMOL/L (99-107); CREATININE 1.06 MG/DL (0.40-0.90); GLUCOSE 96 MG/DL (70-104); MAGNESIUM 1.5 MG/DL (1.5-2.4); POTASSIUM 3.7 MMOL/L (3.5-5.1); SODIUM 145 MMOL/L (135-145); TOTAL CARBON DIOXIDE 23.4 MMOL/L (24-32); eGFR 52 ML/MIN
[2022-08-28 06:29] LABS: BASOPHILS # (AUTO) 0.1 X10'3 (0-0.2); EOSINOPHILS # (AUTO) 0.1 X10'3 (0-0.9); EOSINOPHILS % (AUTO) 2.4 % (0-6); HEMATOCRIT 35.2 % (35.0-45.0); HEMOGLOBIN 11.9 g/dl (12.0-16.0); LYMPHOCYTES # (AUTO) 1.3 X10'3 (1.1-4.8); LYMPHOCYTES % (AUTO) 20.2 % (21-51); MEAN CORPUSCULAR HEMOGLOBIN 31.9 PG (27.0-31.0); MEAN CORPUSCULAR HGB CONC 33.8 g/dL (33.0-36.5); MEAN CORPUSCULAR VOLUME 94.4 FL (78-98); MEAN PLATELET VOLUME 10.5 FL (7.4-10.4); MONOCYTES # (AUTO) 0.4 X10'3 (0-0.9); MONOCYTES % (AUTO) 5.9 % (2-12); NEUTROPHILS # (AUTO) 4.4 X10'3 (1.8-7.7); NEUTROPHILS % (AUTO) 70.5 % (42-75); PLATELET COUNT 175 X10'3 (140-440); RED BLOOD COUNT 3.73 X10'6 (4.20-5.60); RED CELL DISTRIBUTION WIDTH 11.9 % (11.5-14.5); WHITE BLOOD COUNT 6.3 X10'3 (4.5-11.0)
[2022-08-28] MEDS: K and/or MAG REPLACEMENT MC SCH ×2 (08:00→20:00)
[2022-08-28] MEDS: vitamin B comp w/Vit. C tab 1 TAB TABLET PO SCH (08:00)
[2022-08-28] MEDS: docusate sod 100mg capsule PO SCH ×2 (08:01→20:00)
[2022-08-28] MEDS: furosemide 20MG tablet PO SCH (08:01)
[2022-08-28] MEDS: carBAMazepine Ext. Release 200 MG TAB.ER.12H PO SCH ×2 (08:01→22:32)
[2022-08-28] MEDS: ascorbic acid 500mg tablet PO SCH ×2 (08:02→20:00)
[2022-08-28] MEDS: lisinopril 10 MG tablet PO SCH (08:02)
[2022-08-28] MEDS: atorvastatin 20mg tablet PO SCH (08:03)
[2022-08-28 10:50] LABS: ELLIPTOCYTES FEW; PLATELET ESTIMATE NORMAL
[2022-08-28 10:51] LABS: LARGE PLATELETS MODERATE
--- NOTE | 2022-08-28 11:26 | NUR ---
Message: Alexis [facility] [phone] re: 3028b After morning medication pass Patient is now complaining of loose stool and would like Immodium added to med list if possible. Thanks Alexis.
--- NOTE | 2022-08-28 14:16 | NUR ---
PAGE SENT TO PT AT THIS TIME. DR. STREET WOULD LIKE A PT EVAL FOR DISCHARGE ON PATIENT 3028B. IF THE ORDER IS NOT IN I WILL PLACE ONE THANKS.
[2022-08-28] MEDS ORDERED: loperamide 2mg capsule PO ONE (14:20)
[2022-08-28] MEDS ORDERED: CLIN-97 PO (14:52)
[2022-08-28] MEDS ORDERED: LACT1CAP26 PO (14:52)
--- NOTE | 2022-08-28 15:07 | NUR ---
Message: Alexis [facility] [phone] re: 3028b Patient was not cleared by PT, they have recommended for the patient to have rehab, and have notified case management of patients needs. Md responded readily and is aware of patients discharge status.
--- NOTE | 2022-08-28 17:13 | NUR ---
Message: Alexis [facility] [id number] re: [id number] Ángel Early Patient would like imodium on her medications since she is not leaving at this time? Thanks
--- NOTE | 2022-08-28 18:41 | NUR ---
Problems reprioritized. Patient report given, questions answered & plan of care reviewed with Siena HYLTON.
--- NOTE | 2022-08-28 18:50 | NUR ---
Problems reprioritized. Patient report given, questions answered & plan of care reviewed with Reema HYLTON.
[2022-08-28] MEDS: lactobacillus rhamnosus 10,000 MMU CELLS/CAPSULE PO SCH (21:27)
[2022-08-28] MEDS: heparin, porcine 5000 units/ml vial SQ SCH (21:28)
[2022-08-28] MEDS: famotidine 20mg tablet PO SCH (21:37)
[2022-08-28] MEDS: Melatonin 3mg tablet PO PRN (21:37)
[2022-08-28] MEDS: mirtazapine 15mg tablet PO SCH (21:38)
[2022-08-28] MEDS: aripiprazole 5mg tablet PO SCH (21:38)
[2022-08-28] MEDS: CefTRIAXone/D5W-Rocephin 1gm 50 ML IV SCH (22:28)
[2022-08-29 02:00] VITALS: BP 116/43
[2022-08-29 06:15] LABS: ALBUMIN 3.2 G/DL (3.4-5.0); ANION GAP 11 (8-16); BLOOD UREA NITROGEN 16 MG/DL (7-18); BUN/CREATININE RATIO 15.7 (10.0-20.0); CHLORIDE 110 MMOL/L (99-107); CREATININE 1.02 MG/DL (0.40-0.90); GLUCOSE 103 MG/DL (70-104); POTASSIUM 3.6 MMOL/L (3.5-5.1); SODIUM 143 MMOL/L (135-145); TOTAL CARBON DIOXIDE 21.6 MMOL/L (24-32); eGFR 54 ML/MIN
--- NOTE | 2022-08-29 06:18 | NUR ---
Patient in room PCU 3028. I have received report from Reema HYLTON and had the opportunity to ask questions and assume patient care.
[2022-08-29 06:27] LABS: BASOPHILS % (AUTO) 0.5 % (0-1); EOSINOPHILS # (AUTO) 0.2 X10'3 (0-0.9); EOSINOPHILS % (AUTO) 2.8 % (0-6); HEMATOCRIT 39.8 % (35.0-45.0); HEMOGLOBIN 13.1 g/dl (12.0-16.0); LYMPHOCYTES % (AUTO) 29.4 % (21-51); MEAN CORPUSCULAR HEMOGLOBIN 31.6 PG (27.0-31.0); MEAN CORPUSCULAR HGB CONC 32.8 g/dL (33.0-36.5); MEAN CORPUSCULAR VOLUME 96.3 FL (78-98); MEAN PLATELET VOLUME 10.5 FL (7.4-10.4); MONOCYTES # (AUTO) 0.5 X10'3 (0-0.9); MONOCYTES % (AUTO) 7.4 % (2-12); NEUTROPHILS # (AUTO) 4.2 X10'3 (1.8-7.7); NEUTROPHILS % (AUTO) 59.9 % (42-75); PLATELET COUNT 178 X10'3 (140-440); RED BLOOD COUNT 4.14 X10'6 (4.20-5.60); RED CELL DISTRIBUTION WIDTH 12.3 % (11.5-14.5); WHITE BLOOD COUNT 6.9 X10'3 (4.5-11.0)
[2022-08-29 07:42] VITALS: BP 189/80
[2022-08-29] MEDS: K and/or MAG REPLACEMENT MC SCH ×2 (08:00→20:00)
[2022-08-29] MEDS: docusate sod 100mg capsule PO SCH ×2 (08:00→20:00)
[2022-08-29] MEDS: ascorbic acid 500mg tablet PO SCH ×2 (09:29→20:00)
[2022-08-29] MEDS: lactobacillus rhamnosus 10,000 MMU CELLS/CAPSULE PO SCH ×2 (09:29→20:00)
[2022-08-29] MEDS: furosemide 20MG tablet PO SCH (09:30)
[2022-08-29] MEDS: vitamin B comp w/Vit. C tab 1 TAB TABLET PO SCH (09:30)
[2022-08-29] MEDS: lisinopril 10 MG tablet PO SCH (09:30)
[2022-08-29] MEDS: carBAMazepine Ext. Release 200 MG TAB.ER.12H PO SCH ×2 (09:31→20:57)
[2022-08-29] MEDS: atorvastatin 20mg tablet PO SCH (09:34)
[2022-08-29] MEDS: heparin, porcine 5000 units/ml vial SQ SCH ×2 (09:35→21:04)
[2022-08-29] MEDS: CefTRIAXone/D5W-Rocephin 1gm 50 ML IV SCH (10:29)
--- NOTE | 2022-08-29 10:43 | NUR ---
Initial: Pt DX CAD, HTN, GERD, hyperlipidemia, and symptomatic bradycardia s/p pacemaker placement this admit per EMR. Noted pt complaints of chronic diarrhea though takes mag-ox BID at home per EMR. Diarrhea this admit though routine colace ordered received 3 doses this LOS w/ rest held and receiving routine probiotic per EMR. PO ~57% avg meals outside of NPO periods this admit overall not meeting needs given NPO periods though if current trends persist will meet protein and ~91% kcal needs. Will continue to follow. Rec: 1. continue heart healthy diet per MD; encourage PO 2. monitor further PO trends for ONS needs 3. bowel care per rx; consider anti-diarrheal per physician discretion 4. weekly wt Addendum: 08/29/22 at [address] Amended: Links added.
--- NOTE | 2022-08-29 14:56 | NUR ---
Message: Alexis [facility] [id number] re: [id number] Patient has not had a BM since 1730 yesterday did you still want me to collect and run a C.Diff sample. Thanks
[2022-08-29] MEDS: simethicone 125mg capsule PO PRN ×2 (15:55→21:00)
[2022-08-29 16:00] VITALS: BP 124/61
[2022-08-29 18:00] VITALS: BP 109/56
--- NOTE | 2022-08-29 18:23 | NUR ---
Problems reprioritized. Patient report given, questions answered & plan of care reviewed with Reema HYLTON.
--- NOTE | 2022-08-29 18:24 | NUR ---
Patient in room PCU 3028. I have received report from Kevin HYLTON and had the opportunity to ask questions and assume patient care.
[2022-08-29] MEDS: famotidine 20mg tablet PO SCH (20:56)
[2022-08-29] MEDS: mirtazapine 15mg tablet PO SCH (20:57)
[2022-08-29] MEDS: aripiprazole 5mg tablet PO SCH (21:00)
[2022-08-29] MEDS: Melatonin 3mg tablet PO PRN (21:02)
[2022-08-29 22:00] VITALS: BP 101/37
[2022-08-30 02:00] VITALS: BP 113/46
--- NOTE | 2022-08-30 06:18 | NUR ---
Problems reprioritized. Patient report given, questions answered & plan of care reviewed with ADARSH RN.
--- NOTE | 2022-08-30 06:30 | NUR ---
Patient in room PCU 3028. I have received report from Reema HYLTON and had the opportunity to ask questions and assume patient care.
[2022-08-30 07:43] VITALS: BP 104/46
[2022-08-30] MEDS: lisinopril 10 MG tablet PO SCH (08:00)
[2022-08-30] MEDS: docusate sod 100mg capsule PO SCH (08:00)
[2022-08-30] MEDS: K and/or MAG REPLACEMENT MC SCH (08:00)
[2022-08-30] MEDS: lactobacillus rhamnosus 10,000 MMU CELLS/CAPSULE PO SCH (08:50)
[2022-08-30] MEDS: carBAMazepine Ext. Release 200 MG TAB.ER.12H PO SCH (08:50)
[2022-08-30] MEDS: vitamin B comp w/Vit. C tab 1 TAB TABLET PO SCH (08:51)
[2022-08-30] MEDS: atorvastatin 20mg tablet PO SCH (08:51)
[2022-08-30] MEDS: furosemide 20MG tablet PO SCH (08:52)
[2022-08-30] MEDS: ascorbic acid 500mg tablet PO SCH (08:52)
[2022-08-30] MEDS: CefTRIAXone/D5W-Rocephin 1gm 50 ML IV SCH (08:53)
[2022-08-30] MEDS: heparin, porcine 5000 units/ml vial SQ SCH (08:54)
[2022-08-30 11:19] VITALS: BP 124/54
--- NOTE | 2022-08-30 14:19 | NUR ---
Attempted to call report to feng garber two times but have not been able to get in touch with nursing staff at this time. Addendum: 08/30/22 at 1608 by Maurizio Rodas RN Patient IV taken out at the time of discharge, canula whole and intact upon inspection. Patient showed minimal bleeding at the site.
== END 2022-08-30 14:03 | DRG 242 ==
LOC: ER 12:43 → ED HOLD 15:05 → PCU 3S 17:53
PROVIDERS: ADMIT Family Medicine; ATTEND Family Medicine
PROC: 3E0234Z Introduction of Serum, Toxoid and Vaccine into Muscle, Percutaneous Approach (ICD-10-PCS; 2022-08-25)
PROC: 0JH606Z Insertion of Pacemaker, Dual Chamber into Chest Subcutaneous Tissue and Fascia, Open Approach (ICD-10-PCS; principal; 2022-08-27)
PROC: 02H63JZ Insertion of Pacemaker Lead into Right Atrium, Percutaneous Approach (ICD-10-PCS; 2022-08-27)
PROC: 02HK3JZ Insertion of Pacemaker Lead into Right Ventricle, Percutaneous Approach (ICD-10-PCS; 2022-08-27)
DX: I49.5 Sick sinus syndrome (principal); N17.0 Acute kidney failure with tubular necrosis; E78.5 Hyperlipidemia, unspecified; G35 Multiple sclerosis; I10 Essential (primary) hypertension; I25.10 Atherosclerotic heart disease of native coronary artery without angina pectoris; J44.9 Chronic obstructive pulmonary disease, unspecified; F32.A Depression, unspecified; K21.9 Gastro-esophageal reflux disease without esophagitis; I44.1 Atrioventricular block, second degree; R55 Syncope and collapse; K52.9 Noninfective gastroenteritis and colitis, unspecified; Z82.0 Family history of epilepsy and other diseases of the nervous system; Z82.49 Family history of ischemic heart disease and other diseases of the circulatory system; Z86.73 Personal history of transient ischemic attack (TIA), and cerebral infarction without residual deficits; Z87.891 Personal history of nicotine dependence; Z88.1 Allergy status to other antibiotic agents; Z88.2 Allergy status to sulfonamides; Z88.6 Allergy status to analgesic agent; Z95.1 Presence of aortocoronary bypass graft; Z23 Encounter for immunization; Z88.8 Allergy status to other drugs, medicaments and biological substances; Z79.899 Other long term (current) drug therapy
CPT/HCPCS: 33208; 36415; 71045; 80048; 80053; 80061; 83036; 83735; 83880; 84443; 84484; 85008; 85025; 86704; 86705; 86706; 87081; 87340; 90732; 93005; 94760; 97116; 97161; 97530; 99152; 99153; 99285; A4333; A4565; A6258; C1785; C1898; G0378; J0696; J0780; J1644; J2250; J3010; J3370; J3490; J7030; J7040

== ENCOUNTER 2024-10-24 08:47 | Outpatient (CLI) | payer MEDICARE, MEDICAID ==
[~2024-10-24 08:47] MED LIST changes: -ALB0.5UD IH; +ARIP5TAB12 PO; -ARIP5TAB14 PO; +ATOR-2 PO; -ATOR40TA71 PO; +CLIN-97 PO; -ISOS30TA9 PO; +LACT1CAP26 PO; +LISI10TA27 PO; -LISI2.5T89 PO; -MULT-1085 PO; +MULT-1161 PO; -VILA10TA PO; +VILA10TA2 PO
--- NOTE | 2024-10-25 15:20 | RADIOLOGY REPORT ---
PROCEDURE: MR MRI LUMBAR SPINE Indication: LUMBAGO COMPARISON: None TECHNIQUE: Multiplanar multisequence images of the the lumbar spine are obtained. FINDINGS: For the purpose of this examination, there are 5 lumbar vertebral body types counting from the lumbos acral junction. The lumbar vertebral body heights are maintained. Moderate multilevel disc space narrowing. There is ankylosis of the L4 and L5 vertebral bodies. 2 mm anterolisthesis of L4 upon L5. Degenerative edemat ous endplate changes at the L1 inferior endplate. Conus terminates at the level of the T12 vertebral body level. L1-2: 2 mm disc protrusion. Mild facet and flavum hypertrophy. No spinal canal stenosis. Mild bilater al neural foraminal stenosis. L2-3: Small disc protrusion. Nppr-cm-eaahzfhe facet and flavum hypertrophy. No spinal canal stenosis. Mild to moderate right and mild left neural foraminal stenosis. L3-4: 3 mm broad-based disc protrusion. Moderate facet and flavum hypertrophy. Thecal sac measures 9 mm AP. Mild spinal canal stenosis. Moderate right and hzse-pb-sjshsagx left neural foraminal stenosis . L4-5: Disc osteophyte complex extending 2 mm posteriorly. Moderate facet and flavum hypertrophy. Thec al sac measures 10 mm AP. No spinal canal stenosis. Zplq-lu-damvtwhz bilateral neural foraminal steno sis. L5-S1: 3 mm disc protrusion. Moderate facet and flavum hypertrophy. Thecal sac measures 8 mm AP. Mild -to-moderate spinal canal stenosis. Mild bilateral neural foraminal stenosis. 2 cm right renal cysts. Right lower quadrant masslike lesion measuring 7.6 cm, incompletely characterized. IMPRESSION: Ankylosis of the L4, L5 vertebral bodies. 2 mm anterolisthesis of L4 upon L5. Vqoo-ps-qjvhdukd spinal canal stenosis at L5-S1. Mild spinal canal stenosis L3-4. Taxg-as-wyfbvlot multilevel neural foraminal stenosis as described. Right lower quadrant masslike lesion measuring 7.6 cm, incompletely characterized. This could represe nt bowel however a abdominal mass can not be ruled out. Recommend CT abdomen pelvis with contrast to evaluate.
--- NOTE | 2024-10-28 06:40 | RADIOLOGY REPORT ---
PROCEDURE: MR MRI C SPINE INDICATION: CERVICAL ARTHRITIS EXAM DATE: 10/24/2024 09:55 AM COMPARISON: None TECHNIQUE: MRI cervical spine without intravenous contrast. FINDINGS: No fractures are identified about the cervical spine. 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 There is 2 mm anterolisthesis C3 on C4 without facet dislocation. No cerebellar tonsillar ectopia. No abnormal signal in the cervical spinal cord. There is advanced cervical degenerative disc disease and facet arthropathy. The AP dimension of the s aron canal is narrowed to 9 mm at C4-C5 ; 8.5 mm at C5-C6; 8.8 mm at C6-C7. There is mass effect on the cervical spinal cord at C5-C6. There may be multilevel significant neural foraminal stenosis in t he cervical spine, although no axial images were submitted, severely limiting evaluation. IMPRESSION: 1. No fracture of the cervical spine. 2. 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 3. Evaluation is limited by absence axial images.
== END 2024-10-24 23:59 | disposition home or self-care (01) ==
LOC: MRI 08:47
PROVIDERS: ATTEND Family Medicine
DX: M51.17 Intervertebral disc disorders with radiculopathy, lumbosacral region (principal); M47.812 Spondylosis without myelopathy or radiculopathy, cervical region; M50.323 Other cervical disc degeneration at C6-C7 level; M48.02 Spinal stenosis, cervical region; M43.12 Spondylolisthesis, cervical region; M48.061 Spinal stenosis, lumbar region without neurogenic claudication; M43.26 Fusion of spine, lumbar region
CPT/HCPCS: 72141; 72148

== ENCOUNTER 2025-03-08 14:17 | Outpatient (CLI) | payer MEDICARE, MEDICAID ==
[~2025-03-08 14:17] MED LIST changes: -CARB200T9 PO; +CLIN-224 PO; -CLIN-97 PO; +[UNRECOGNIZED DRUG - CODE] PO; +iohexol 300mg/ml 100ml inj. ONE
--- NOTE | 2025-03-08 16:17 | RADIOLOGY REPORT ---
Indication: LT LOWER QUADRANT ABD MASS Technique: CT axial images of the abdomen and pelvis are obtained without contrast. Coronal and sagittal reformats were obtained. Radiation Dose Information: CTDI volume is 35 mGy. Dose-length product is 1800 mGy*cm Comparison: None FINDINGS: There is limited interpretation of the abdomen and pelvis without administration of intravenous contrast. Lung bases demonstrate left lower lobe solid nodule measuring 10 mm. 2 mm left lower lobe solid nodule. Right middle lobe solid nodule measuring 13 mm Adrenal glands, Spleen unremarkable in shape. Pancreatic fatty infiltration. Liver is unremarkable in shape. Cholecystectomy. Right renal cyst measuring 2.6 cm. No hydronephrosis. Stomach partially distended. Small bowel loops are normal in caliber. Moderate volume stool in the colon. No secondary signs for appendicitis. Abdominal aortic atherosclerotic disease. Bladder partially distended. No free pelvic fluid. Postsurgical changes left inguinal region. No inguinal lymphadenopathy. Oral-sl-kidsqliy bilateral sacroiliac degenerative joint disease. Ankylosis at L4-5. Moderate lumbar degenerative disc disease. IMPRESSION: Limited evaluation without contrast. Bilateral pulmonary solid nodules up to 13 mm. Recommend Follow-up per Fleischner society criteria. No identifiable right lower quadrant mass. The previously described lesion likely represent an stool filled large bowel/cecum. Atherosclerotic disease. 2.6 cm right renal cyst. Other findings as described.
== END 2025-03-08 23:59 | disposition home or self-care (01) ==
LOC: RAD 14:17
PROVIDERS: ATTEND Family Medicine
DX: M51.369 Other intervertebral disc degeneration, lumbar region without mention of lumbar back pain or lower extremity pain (principal); R19.04 Left lower quadrant abdominal swelling, mass and lump; N28.1 Cyst of kidney, acquired; I70.0 Atherosclerosis of aorta; M43.26 Fusion of spine, lumbar region
CPT/HCPCS: 74176; Q9967

== ENCOUNTER 2025-04-19 10:15 | Outpatient (CLI) | payer MEDICARE, MEDICAID ==
[2025-04-19 11:24] LABS: CREATININE 1.46 MG/DL (0.40-0.90); TOTAL CARBON DIOXIDE 25.1 MMOL/L (24-32); eGFR 35 ML/MIN
--- NOTE | 2025-04-19 14:17 | RADIOLOGY REPORT ---
INDICATION: OTHER NONSPECIFIC ABNORMAL FINDING OF LUNG FIELD TECHNIQUE: CT axial images of the chest are obtained with and without intravenous contrast. Coronal and sagittal reformats were obtained. Radiation Dose Information: CTDI volume is 19 mGy. Dose-length product is 627 mGy*cm COMPARISON: None FINDINGS: Trachea patent. No pneumothorax. No pulmonary airspace consolidation. No pleural effusion. Right middle lobe solid nodule measuring 13 mm, unchanged. Left lower lobe solid nodule measuring 10 mm, unchanged. 2 mm right lower lobe solid nodule. Heart size within normal limits. No mediastinal / hilar lymphadenopathy. No supraclavicular or axillary lymphadenopathy. Coronary artery calcification disease. 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 Heterogeneous thyroid gland with numerous nodules and enlarged left thyroid lobe. There are also numerous thyroid calcifications. No supraclavicular or axillary lymphadenopathy. Cholecystectomy. Median sternotomy wires. Powk-wk-mlbcovko Thoracic degenerative disc disease. IMPRESSION: Pulmonary nodules up to 13 mm bilaterally. Recommend follow-up per Fleischner society criteria guidelines. Atherosclerotic, coronary artery calcification disease. Enlarged thyroid gland with multiple bilateral nodules. Recommend thyroid ultrasound to further evaluate. Other findings as described.
== END 2025-04-19 23:59 | disposition home or self-care (01) ==
LOC: RAD 10:15
PROVIDERS: ATTEND Family Medicine
DX: I12.9 Hypertensive chronic kidney disease with stage 1 through stage 4 chronic kidney disease, or unspecified chronic kidney disease (principal); R91.8 Other nonspecific abnormal finding of lung field; N18.4 Chronic kidney disease, stage 4 (severe); I25.10 Atherosclerotic heart disease of native coronary artery without angina pectoris; E04.2 Nontoxic multinodular goiter; M51.34 Other intervertebral disc degeneration, thoracic region; Z90.49 Acquired absence of other specified parts of digestive tract
CPT/HCPCS: 36415; 71270; 80053; Q9967